=== PATIENT | male | born 1950 | race Caucasian/White ===

== ENCOUNTER 2020-06-17 15:49 | Inpatient (IN) | payer MEDICARE ==
[2020-06-17] MEDS ORDERED: Ondansetron ODT 4 MG TAB PO PRN (18:05)
[2020-06-17] MEDS: Cefdinir 300 MG CAP PO SCH (20:59)
[2020-06-17] MEDS: Famotidine 20 MG TAB PO SCH (20:59)
[2020-06-17] MEDS: Donepezil HCl 10 MG TAB PO SCH (20:59)
[2020-06-17] MEDS: Carvedilol 3.125 MG TAB PO SCH (20:59)
[2020-06-17] MEDS: Enoxaparin Sodium 40 MG/0.4 ML SYRINGE SC SCH (20:59)
[2020-06-17] MEDS ORDERED: Non-Formulary Item 1 EACH (Fluticasone/Salmeterol [Advair Hfa 230/21 Inhaler] 12 GM Hfa.A IH SCH (21:00)
[2020-06-18] MEDS: Acetaminophen 500 MG TAB PO SCH ×4 (01:04→17:52)
[2020-06-18 05:24] LABS: Hemoglobin 9.1 g/dL (14.0-18.0); Mean Corpuscular HGB CONC 31.2 g/dL (32.0-36.0); Mean Corpuscular Hemoglobin 30.1 pg (27.0-31.0); Mean Corpuscular Volume 96.4 fL (78.0-98.0); Red Blood Cell (RBC) Count 3.03 mill/uL (4.70-6.10); White Blood Cell (WBC) Count 8.2 thou/uL (4.8-10.8)
[2020-06-18 05:25] LABS: #Neutrophils 6.1 thou/uL (1.40-6.50); %Basophils 0.6 % (0.0-1.0); %Eosinophils 4.4 % (0.0-10.0); %Lymphocytes 12.7 % (21.0-51.0); %Monocytes 8.7 % (0.0-10.0); %Neutrophils 73.7 % (42.0-75.0); Manual Diff?? NO; Mean Platelet Volume 7.8 fL (7.4-10.4); Platelet Count 465 thou/uL (130-400); RBC Distribution Width 13.3 % (11.5-14.5)
[2020-06-18 05:26] LABS: #Eosinphils 0.4 thou/uL (0.0-0.7); #Monocytes 0.7 thou/uL (0.11-0.59)
[2020-06-18 05:27] LABS: ALT (SGPT) 19 U/L (8-55); AST (SGOT) 25 U/L (5-34); Albumin 3.3 g/dL (3.4-4.8); Alkaline Phosphatase 54 U/L (40-110); Anion Gap 13 mmol/L (10-20); BUN (Urea Nitrogen) 17 mg/dL (8.4-25.7); Calc. Creatinine Clearance 87 mL/min (70-130); Calcium 8.7 mg/dL (7.8-10.44); Carbon Dioxide 28 mmol/L (23-31); Chloride 103 mmol/L (98-107); Estimated GFR-MDRD Greater than 90; Globulin 2.6 g/dL (2.4-3.5); Glucose 102 mg/dL (83-110); Potassium 3.7 mmol/L (3.5-5.1); Protein, Total 5.9 g/dL (5.8-8.1)
[2020-06-18] MEDS: Mometasone/Formoterol 200/5 60 PUFF INH SCH ×2 (05:41→17:59)
[2020-06-18 06:38] LABS: Sodium 140 mmol/L (136-145)
[2020-06-18] MEDS: Ferrous Sulfate 325 MG TAB PO SCH ×2 (08:10→17:06)
[2020-06-18] MEDS: Lactinex Tablet PO SCH (09:07)
[2020-06-18] MEDS: Polyethylene Glycol 3350 17 GM Packet PO SCH (09:07)
[2020-06-18] MEDS: Magnesium Oxide 400 MG TAB PO SCH (09:08)
[2020-06-18] MEDS: Fish Oil 1,000 MG CAP PO SCH (09:08)
[2020-06-18] MEDS: Calcium Carbonate 600 MG + Vit D TAB PO SCH (09:08)
[2020-06-18] MEDS: Ezetimibe 10 MG TAB PO SCH (09:08)
[2020-06-18] MEDS: Famotidine 20 MG TAB PO SCH ×2 (09:08→21:49)
[2020-06-18] MEDS: Cefdinir 300 MG CAP PO SCH ×2 (09:08→21:50)
[2020-06-18] MEDS: Fluticasone Propionate Nasal Spray 16 gm Bottle NASAL SCH (09:08)
[2020-06-18] MEDS: Carvedilol 3.125 MG TAB PO SCH ×2 (09:08→21:49)
--- NOTE | 2020-06-18 10:47 | HP ---
Admission to the [facility]. HISTORY OF PRESENT ILLNESS: The patient is an unfortunate 69-year-old white male with a progressive history of Lewy body dementia and Parkinson disease, who has fallen and suffered a left intertrochanteric proximal femur fracture. He was treated with IM shannon fixation on June 14 at [facility]. He had only complications postoperatively with some mild blood loss with anemia and urinary tract infection. He did not have any complications of his Lewy body dementia, but has remained confused, and his primary caregiver, his , has made all decisions and has been with the patient. He has had no difficulty swallowing with his Parkinson disease. He, however, has remained very stiff and rigid. He has been attempting to cooperate with therapy and has had only occasional delirium. PAST MEDICAL HISTORY: Positive for asthma and COPD as a younger man, only requiring p.r.n. beta agonist at this time. He also has a history of hypertension, which has been well controlled and a history of a previous myocardial infarction with apparent ischemic cardiomyopathy, requiring a defibrillator because of a 35% ejection fraction many years ago. He, however, has had no dyspnea or chest pain or arrhythmias or syncope, but has progressively become weaker, more confused over the last year with a progression of his Lewy body dementia and Parkinson disease. He also has a history of hyperlipidemia and class 1 congestive heart failure. ALLERGIES: HE HAS NO KNOWN ALLERGIES. SOCIAL HISTORY: He is a nonsmoker, nondrinker. He lives with his at home with caregiver's assistance. FAMILY HISTORY: Positive for his father dying of early heart attack. REVIEW OF SYSTEMS: He is unable to give history, but gives all the history. He has only occasional cough. He has had no wheezing. He has denied any chest pain or shortness of breath. He has had no nausea, vomiting, diarrhea, or anorexia. He does have incontinence, but has no previous history of urinary tract infection until this admission. He has been treated with Myrbetriq, but with minimal improvement in his incontinence. He has had no problems with bowel movements or constipation. MEDICATIONS: On admission here were: 1. Tylenol 500 mg every 6 hours as needed for pain. 2. Did take oxycodone immediately postop, but none since then. 3. He is on calcium carbonate with vitamin D3. 4. Cefdinir 300 mg twice daily, urinary tract infection with Escherichia coli. 5. Lovenox 40 mg subcu for 8 weeks postop to prevent DVT per recommendations of orthopedic surgeon. 6. Ferrous sulfate 325 mg twice daily with meals. 7. MiraLAX 17 g daily. 8. Aricept 10 mg nightly. 9. Carvedilol 3.125 mg twice daily. 10. Ezetimibe 10 mg daily. 11. Fluticasone-salmeterol 230-21 two puffs every 12 hours. 12. Fluticasone 50 mcg nasal spray two sprays twice daily. 13. Magnesium oxide 400 mg daily. 14. Niacin 1000 mg nightly. 15. Lovaza 1 g twice daily. 16. He was on Myrbetriq as mentioned above, but wishes to discontinue this. PHYSICAL EXAMINATION: GENERAL: At this time, shows an elderly white male, who is awake, no distress, only occasional cough, but does not respond verbally very much. He has been recently working with therapy, but is very stiff and rigid, is not combatant or agitated. VITAL SIGNS: Show him to have a temperature 96.9, pulse 80, respirations 18, O2 saturation is 95% on room air, and blood pressure 113/56. LUNGS: Show only a few diffuse rhonchi. CARDIAC: Shows regular rhythm. Defibrillator is in place. ABDOMEN: Soft and nontender. No masses or organomegaly. SKIN/EXTREMITIES: Display left hip lateral incision bandaged with no erythema, warmth, or drainage. No tenderness. NEUROLOGIC: There is significant rigidity. Minimal tremor. Cranial nerves appear to be intact, but there are masked faces and bradykinesia. LABORATORY DATA: Laboratory will be done in the a.m. ASSESSMENT: 1. Left intertrochanteric hip fracture, status post IM nailing with pain control with Tylenol. We will see if needs stronger medication with therapy. 2. Significant Lewy body dementia and Parkinson disease, only on Aricept at this time with minimal agitation, attempting to cooperate with therapy. 3. History of ischemic cardiomyopathy with defibrillator, but with no symptoms of systolic heart failure at this time. 4. Hypertension, controlled to goal. 5. Incontinence. No relief with Myrbetriq, will be discontinued. 6. Escherichia coli urinary tract infection, on cefdinir, for 2 more days. 7. Deep venous thrombosis prophylaxis with Lovenox for 8 weeks per recommendations of orthopedic surgeon. The patient is not to be resuscitated and has an advance directive, that was brought in by his power of commercial litigation attorney, his . Job ID: [id number]
[2020-06-18] MEDS: Donepezil HCl 10 MG TAB PO SCH (21:50)
[2020-06-18] MEDS: Enoxaparin Sodium 40 MG/0.4 ML SYRINGE SC SCH (21:50)
[2020-06-19] MEDS: Acetaminophen 500 MG TAB PO SCH ×4 (00:54→17:15)
[2020-06-19] MEDS: Mometasone/Formoterol 200/5 60 PUFF INH SCH ×2 (05:39→17:15)
[2020-06-19] MEDS: Polyethylene Glycol 3350 17 GM Packet PO SCH (08:44)
[2020-06-19] MEDS: Fluticasone Propionate Nasal Spray 16 gm Bottle NASAL SCH (08:44)
[2020-06-19] MEDS: Cefdinir 300 MG CAP PO SCH ×2 (08:45→20:30)
[2020-06-19] MEDS: Lactinex Tablet PO SCH (08:45)
[2020-06-19] MEDS: Fish Oil 1,000 MG CAP PO SCH (08:45)
[2020-06-19] MEDS: Magnesium Oxide 400 MG TAB PO SCH (08:45)
[2020-06-19] MEDS: Carvedilol 3.125 MG TAB PO SCH ×2 (08:45→20:31)
[2020-06-19] MEDS: Calcium Carbonate 600 MG + Vit D TAB PO SCH (08:45)
[2020-06-19] MEDS: Famotidine 20 MG TAB PO SCH ×2 (08:45→20:31)
[2020-06-19] MEDS: Ferrous Sulfate 325 MG TAB PO SCH ×2 (08:45→17:15)
[2020-06-19] MEDS: Ezetimibe 10 MG TAB PO SCH (08:45)
--- NOTE | 2020-06-19 18:53 | PRG ---
DATE OF SERVICE: 06/18/2020 SUBJECTIVE: The patient is more sedated today. Still not improving in his mental status. Has not had therapy today because of the weekend. OBJECTIVE: VITAL SIGNS: Show temperature is 98, pulse 82, respirations 18, O2 sats 100% on room air, and blood pressure 130/68. NEUROLOGIC: Shows significant rigidity, bradykinesia. Deep tendon reflex, 2+ and equal. Cranial nerves intact. LABORATORY DATA: White count is 8200, hematocrit 29, and hemoglobin 9. Sodium 140, potassium 3.7, chloride 103, bicarb 28, BUN 17, creatinine 0.78, total bilirubin 2, and albumin 3. PLAN: 1. Continue PT, OT, and speech evaluation tomorrow. 2. Continue Aricept. 3. Continue cefdinir for urinary tract infection. 4. Monitor oral intake. Job ID: [id number]
--- NOTE | 2020-06-19 19:15 | PRG ---
DATE OF SERVICE: 06/19/2020 SUBJECTIVE: The patient is in bed, sleeping, has eaten partially his supper. He does awaken to questions and does answer fairly appropriately. However, states that he has not cooperated well today and has been much more lethargic and stiff than he has in the past. OBJECTIVE: VITAL SIGNS: Blood pressure is 129/65, temperature is 98, pulse 85, respirations 20, and O2 sats 93% on room air. LUNGS: Clear. CARDIAC: Regular rhythm. ABDOMEN: Soft and nontender. SKIN AND EXTREMITIES: No edema, clubbing, or cyanosis. NEUROLOGIC: Cogwheel rigidity, bradykinesia. ASSESSMENT: 1. Left intertrochanteric hip fracture status post intramedullary nailing with pain control. 2. Significant Lewy body dementia with significant stiffness, bradykinesia, and slowly worsening cognitive deficits. 3. History of ischemic cardiomyopathy with defibrillator with no evidence of angina or congestive heart failure. 4. Hypertension, controlled to goal. 5. Escherichia coli urinary tract infection, on cefdinir for one more day. 6. Deep venous thrombosis prophylaxis with Lovenox for 8 weeks. Job ID: [id number]
[2020-06-19] MEDS: Donepezil HCl 10 MG TAB PO SCH (20:30)
[2020-06-19] MEDS: Enoxaparin Sodium 40 MG/0.4 ML SYRINGE SC SCH (20:31)
[2020-06-20] MEDS: Acetaminophen 500 MG TAB PO SCH ×5 (00:22→23:59)
[2020-06-20] MEDS: Mometasone/Formoterol 200/5 60 PUFF INH SCH ×2 (05:37→18:21)
[2020-06-20] MEDS: Fluticasone Propionate Nasal Spray 16 gm Bottle NASAL SCH (09:15)
[2020-06-20] MEDS: Polyethylene Glycol 3350 17 GM Packet PO SCH (09:16)
[2020-06-20] MEDS: Ezetimibe 10 MG TAB PO SCH (09:17)
[2020-06-20] MEDS: Famotidine 20 MG TAB PO SCH ×2 (09:17→21:11)
[2020-06-20] MEDS: Magnesium Oxide 400 MG TAB PO SCH (09:17)
[2020-06-20] MEDS: Fish Oil 1,000 MG CAP PO SCH (09:17)
[2020-06-20] MEDS: Calcium Carbonate 600 MG + Vit D TAB PO SCH (09:17)
[2020-06-20] MEDS: Lactinex Tablet PO SCH (09:17)
[2020-06-20] MEDS: Carvedilol 3.125 MG TAB PO SCH ×2 (09:17→21:11)
[2020-06-20] MEDS: Cefdinir 300 MG CAP PO SCH ×2 (09:17→21:11)
[2020-06-20] MEDS: Ferrous Sulfate 325 MG TAB PO SCH ×2 (09:17→17:26)
[2020-06-20] MEDS ORDERED: Ondansetron ODT 4 MG TAB SL PRN (11:45)
[2020-06-20] MEDS: Enoxaparin Sodium 40 MG/0.4 ML SYRINGE SC SCH (21:10)
[2020-06-20] MEDS: Acetaminophen 325 MG TAB PO PRN (21:11)
[2020-06-20] MEDS: Donepezil HCl 10 MG TAB PO SCH (21:11)
[2020-06-21] MEDS: Acetaminophen 500 MG TAB PO SCH ×3 (06:05→18:28)
[2020-06-21] MEDS: Mometasone/Formoterol 200/5 60 PUFF INH SCH ×2 (06:06→18:28)
--- NOTE | 2020-06-21 08:17 | PRG ---
DATE OF SERVICE: 06/20/2020 SUBJECTIVE: The patient is sitting in bed, has eaten slightly, but did eat better today. Did work with therapy today and having tolerable pain, but did have some agitation this morning; however, is in the room and did calm him down and he did work with therapy. OBJECTIVE: VITAL SIGNS: Shows his blood pressure is 115/61, temperature is 98, pulse 70, respirations 20, O2 saturations 95% on room air. LUNGS: Clear. CARDIAC: Showed regular rhythm. ABDOMEN: Soft and nontender. NEUROLOGICAL: Shows significant bradykinesia and cogwheel rigidity and some minimal tremor. The patient also is intermittently lethargic, but does respond appropriately at times. ASSESSMENT: 1. Lewy body dementia, slowly progressive. 2. Fracture of the left hip status, intramedullary nailing with pain control on Tylenol. 3. History of ischemic cardiomyopathy, a defibrillator. No evidence of angina. 4. Hypertension, controlled to go. 5. Escherichia coli urinary tract infection with finished treatment with cefdinir. 6. Deep vein thrombosis prophylaxis, on Lovenox. PLAN: 1. Continue PT, OT. 2. Continue to monitor for behavioral disturbances. 3. Continue to monitor for DVT prophylaxis. 4. Continue to monitor for recurrent signs of ischemia. 5. Continue to monitor vital signs closely. Job ID: [id number]
[2020-06-21] MEDS: Ferrous Sulfate 325 MG TAB PO SCH ×2 (08:25→16:57)
[2020-06-21] MEDS: Magnesium Oxide 400 MG TAB PO SCH (08:25)
[2020-06-21] MEDS: Fish Oil 1,000 MG CAP PO SCH (08:25)
[2020-06-21] MEDS: Carvedilol 3.125 MG TAB PO SCH ×2 (08:26→21:11)
[2020-06-21] MEDS: Famotidine 20 MG TAB PO SCH ×2 (08:26→21:11)
[2020-06-21] MEDS: Polyethylene Glycol 3350 17 GM Packet PO SCH (08:26)
[2020-06-21] MEDS: Ezetimibe 10 MG TAB PO SCH (08:26)
[2020-06-21] MEDS: Lactinex Tablet PO SCH (08:27)
[2020-06-21] MEDS: Fluticasone Propionate Nasal Spray 16 gm Bottle NASAL SCH (08:27)
[2020-06-21] MEDS: Calcium Carbonate 600 MG + Vit D TAB PO SCH (08:27)
[2020-06-21] MEDS: Enoxaparin Sodium 40 MG/0.4 ML SYRINGE SC SCH (21:10)
[2020-06-21] MEDS: Donepezil HCl 10 MG TAB PO SCH (21:11)
[2020-06-22] MEDS: Acetaminophen 500 MG TAB PO SCH ×4 (00:12→17:34)
[2020-06-22] MEDS: Mometasone/Formoterol 200/5 60 PUFF INH SCH ×2 (05:40→17:35)
[2020-06-22] MEDS: Famotidine 20 MG TAB PO SCH ×2 (08:10→20:47)
[2020-06-22] MEDS: Carvedilol 3.125 MG TAB PO SCH ×2 (08:10→20:47)
[2020-06-22] MEDS: Ezetimibe 10 MG TAB PO SCH (08:10)
[2020-06-22] MEDS: Fish Oil 1,000 MG CAP PO SCH (08:10)
[2020-06-22] MEDS: Magnesium Oxide 400 MG TAB PO SCH (08:10)
[2020-06-22] MEDS: Ferrous Sulfate 325 MG TAB PO SCH ×2 (08:10→17:34)
[2020-06-22] MEDS: Lactinex Tablet PO SCH (08:10)
[2020-06-22] MEDS: Calcium Carbonate 600 MG + Vit D TAB PO SCH (08:10)
[2020-06-22] MEDS: Fluticasone Propionate Nasal Spray 16 gm Bottle NASAL SCH (08:11)
[2020-06-22] MEDS: Polyethylene Glycol 3350 17 GM Packet PO SCH (08:11)
[2020-06-22] MEDS: HYDROcodone/Acetaminophen 5/325 mg Tablet PO PRN ×2 (09:40→20:55)
[2020-06-22] MEDS: Donepezil HCl 10 MG TAB PO SCH (20:47)
[2020-06-22] MEDS: Enoxaparin Sodium 40 MG/0.4 ML SYRINGE SC SCH (20:47)
[2020-06-23] MEDS: Acetaminophen 500 MG TAB PO SCH ×4 (00:31→17:52)
[2020-06-23] MEDS: Mometasone/Formoterol 200/5 60 PUFF INH SCH ×2 (05:48→17:52)
[2020-06-23] MEDS: Lactinex Tablet PO SCH (08:33)
[2020-06-23] MEDS: Magnesium Oxide 400 MG TAB PO SCH (08:34)
[2020-06-23] MEDS: Calcium Carbonate 600 MG + Vit D TAB PO SCH (08:34)
[2020-06-23] MEDS: Polyethylene Glycol 3350 17 GM Packet PO SCH (08:34)
[2020-06-23] MEDS: Famotidine 20 MG TAB PO SCH ×2 (08:34→20:21)
[2020-06-23] MEDS: Ezetimibe 10 MG TAB PO SCH (08:34)
[2020-06-23] MEDS: Ferrous Sulfate 325 MG TAB PO SCH ×2 (08:34→17:52)
[2020-06-23] MEDS: Fish Oil 1,000 MG CAP PO SCH (08:34)
[2020-06-23] MEDS: Fluticasone Propionate Nasal Spray 16 gm Bottle NASAL SCH (08:35)
[2020-06-23] MEDS: Carvedilol 3.125 MG TAB PO SCH ×2 (08:35→20:21)
[2020-06-23] MEDS: Acetaminophen 325 MG TAB PO PRN (10:13)
--- NOTE | 2020-06-23 10:17 | PRG ---
DATE OF SERVICE: 06/23/2020 SUBJECTIVE: The patient is sitting in the bed, visiting with his , answers questions occasionally and appropriately. states he had a much better day today where he is working with therapy, has been eating well and she felt that there has been a marked improvement. OBJECTIVE: VITAL SIGNS: Shows temperature 97, pulse 79, respirations 20, O2 sats 97% on room air, blood pressure 119/56. LUNGS: Clear. CARDIAC: Regular rhythm. ABDOMEN: Soft and nontender. NEUROLOGIC: Shows significant bradykinesia and cogwheel rigidity. show healing intramedullary nail . ASSESSMENT: 1. Lewy body dementia, appears to be slightly improved today, but has generally been slowly progressive. 2. Fracture of left hip, status post intramedullary nailing, healing well. 3. History of ischemic cardiomyopathy status post defibrillator. Asymptomatic. 4. Hypertension, controlled to goal. 5. Escherichia coli tract infection, finished treatment with cefdinir. 6. Deep venous thrombosis prophylaxis and stress ulcer prophylaxis. PLAN: 1. Continue PT, OT. 2. Continue DVT and stress ulcer prophylaxis. 3. Continue to monitor for signs of ischemia. 4. Continue to monitor for signs of behavior disturbance. Job ID: [id number]
--- NOTE | 2020-06-23 10:20 | PRG ---
DATE OF SERVICE: 06/22/2020 SUBJECTIVE: The patient feels weak and tired, working with therapy today and resting in the bed. The patient's is not in the room. OBJECTIVE: VITAL SIGNS: Temperature 96.6, pulse 76, respirations 20, O2 sats 97% on room air, blood pressure 118/68. LUNGS: Clear. CARDIAC: Regular rhythm. ABDOMEN: Soft and nontender. EXTREMITIES: Healing left lateral hip incision. NEUROLOGICAL: Significant bradykinesia and cogwheel rigidity. ASSESSMENT: 1. Lewy body dementia and Parkinson disease, slowly progressing, but does appear to be improving with therapy today after exacerbation after surgery. 2. Left hip fracture, status post intramedullary nailing, healing well with probable pain, on Tylenol. 3. Ischemic cardiomyopathy, asymptomatic, status post defibrillator. 4. E coli urinary tract infection, resolved. 5. Hypertension, controlled to goal. PLAN: 1. Continue PT, OT. 2. Continue to monitor for behavioral disturbances. 3. Continue to monitor for ischemia. 4. Continue DVT, stress ulcer prophylaxis. 5. Continue to restrict pain medications until return from my vacation on July 09. Job ID: [id number]
[2020-06-23] MEDS: Enoxaparin Sodium 40 MG/0.4 ML SYRINGE SC SCH (20:20)
[2020-06-23] MEDS: Donepezil HCl 10 MG TAB PO SCH (20:21)
[2020-06-24] MEDS: Acetaminophen 500 MG TAB PO SCH ×4 (01:53→17:38)
[2020-06-24] MEDS: Mometasone/Formoterol 200/5 60 PUFF INH SCH ×2 (05:56→17:38)
[2020-06-24] MEDS: Carvedilol 3.125 MG TAB PO SCH ×2 (08:21→20:44)
[2020-06-24] MEDS: Calcium Carbonate 600 MG + Vit D TAB PO SCH (08:21)
[2020-06-24] MEDS: Lactinex Tablet PO SCH (08:21)
[2020-06-24] MEDS: Ferrous Sulfate 325 MG TAB PO SCH ×2 (08:21→17:37)
[2020-06-24] MEDS: Ezetimibe 10 MG TAB PO SCH (08:21)
[2020-06-24] MEDS: Fish Oil 1,000 MG CAP PO SCH (08:21)
[2020-06-24] MEDS: Famotidine 20 MG TAB PO SCH ×2 (08:21→20:44)
[2020-06-24] MEDS: Polyethylene Glycol 3350 17 GM Packet PO SCH (08:21)
[2020-06-24] MEDS: Magnesium Oxide 400 MG TAB PO SCH (08:21)
[2020-06-24] MEDS: Fluticasone Propionate Nasal Spray 16 gm Bottle NASAL SCH (08:22)
[2020-06-24] MEDS: Enoxaparin Sodium 40 MG/0.4 ML SYRINGE SC SCH (20:44)
[2020-06-24] MEDS: Donepezil HCl 10 MG TAB PO SCH (20:44)
[2020-06-25] MEDS: Acetaminophen 500 MG TAB PO SCH ×4 (00:48→17:47)
[2020-06-25] MEDS: Mometasone/Formoterol 200/5 60 PUFF INH SCH ×2 (05:35→17:47)
[2020-06-25] MEDS: Ferrous Sulfate 325 MG TAB PO SCH ×2 (08:24→17:47)
[2020-06-25] MEDS: Polyethylene Glycol 3350 17 GM Packet PO SCH (08:24)
[2020-06-25] MEDS: Calcium Carbonate 600 MG + Vit D TAB PO SCH (08:24)
[2020-06-25] MEDS: Magnesium Oxide 400 MG TAB PO SCH (08:25)
[2020-06-25] MEDS: Fluticasone Propionate Nasal Spray 16 gm Bottle NASAL SCH (08:25)
[2020-06-25] MEDS: Carvedilol 3.125 MG TAB PO SCH ×2 (08:25→20:54)
[2020-06-25] MEDS: Lactinex Tablet PO SCH (08:25)
[2020-06-25] MEDS: Famotidine 20 MG TAB PO SCH ×2 (08:25→20:54)
[2020-06-25] MEDS: Ezetimibe 10 MG TAB PO SCH (08:25)
[2020-06-25] MEDS: Fish Oil 1,000 MG CAP PO SCH (08:25)
[2020-06-25] MEDS: Acetaminophen 325 MG TAB PO PRN (09:06)
[2020-06-25] MEDS: Donepezil HCl 10 MG TAB PO SCH (20:54)
[2020-06-25] MEDS: Enoxaparin Sodium 40 MG/0.4 ML SYRINGE SC SCH (20:54)
[2020-06-26] MEDS: Acetaminophen 500 MG TAB PO SCH ×4 (00:17→17:50)
[2020-06-26] MEDS: Mometasone/Formoterol 200/5 60 PUFF INH SCH ×2 (06:04→17:50)
[2020-06-26] MEDS: Polyethylene Glycol 3350 17 GM Packet PO SCH (08:06)
[2020-06-26] MEDS: Calcium Carbonate 600 MG + Vit D TAB PO SCH (08:07)
[2020-06-26] MEDS: Fluticasone Propionate Nasal Spray 16 gm Bottle NASAL SCH (08:07)
[2020-06-26] MEDS: Ezetimibe 10 MG TAB PO SCH (08:07)
[2020-06-26] MEDS: Ferrous Sulfate 325 MG TAB PO SCH ×2 (08:07→17:50)
[2020-06-26] MEDS: Magnesium Oxide 400 MG TAB PO SCH (08:07)
[2020-06-26] MEDS: Fish Oil 1,000 MG CAP PO SCH (08:07)
[2020-06-26] MEDS: Lactinex Tablet PO SCH (08:08)
[2020-06-26] MEDS: Carvedilol 3.125 MG TAB PO SCH ×2 (08:08→21:19)
[2020-06-26] MEDS: Famotidine 20 MG TAB PO SCH ×2 (08:08→21:19)
--- NOTE | 2020-06-26 20:52 | PRG ---
DATE OF SERVICE: 06/26/2020 SUBJECTIVE: Mr. Jones is a pleasant 69-year-old white male. Unfortunately, he fell and had a left intertrochanteric proximal femur fracture. He was taken to [facility] on June 14, had an intramedullary shannon fixation. Postoperatively, he had some mild blood loss with anemia and urinary tract infection. He was placed on cefdinir and seem to do well. He has comorbidities of Lewy body dementia, Parkinson's disease, asthma, COPD, prior [place] with apparent ischemic cardiomyopathy requiring a defibrillator because of the 35% ejection fraction, hyperlipidemia, class 1 congestive heart failure, incontinence, and generalized weakness. He is seen late this evening and is easily arousable. He seems to be more cognitive than he has been on his admission. OBJECTIVE: VITAL SIGNS: Today reveal blood pressure 117/62, pulse 80 to 81, respirations 20, O2 saturation 97% to 98% on room air, T-max 97.8. GENERAL: This is a well-developed, well-nourished pleasant white male, presently resting. HEENT: Normocephalic and nontraumatic cranium. Pupils equally round and reactive. Extraocular movements intact. Nose and throat are slightly dry, but clear. NECK: Supple without masses, nodes, or bruits. CHEST: Clear to auscultation. No rales, no rhonchi, no wheezes. No cough is noted. HEART: Reveals a regular rate and rhythm without murmurs, gallops, or rubs. ABDOMEN: Soft, nontender without organomegaly. Normal bowel sounds in all 4 quadrants. GENITOURINARY: Deferred. EXTREMITIES: Reveal no clubbing, cyanosis, or edema. Left lateral hip incision from intramedullary nailing is healing well without any redness, induration, or drainage. NEUROLOGIC: The patient has Parkinson's with cogwheel rigidity and some significant bradykinesias. ASSESSMENT: 1. Slightly more cognitive than on admission. 2. Lewy body dementia. 3. Parkinson's disease. 4. Left hip fracture, status post IM nailing. 5. Ischemic cardiomyopathy with ejection fraction 35% and status post defibrillator. 6. Escherichia coli urinary tract infection, resolved. 7. Hypertension. 8. Incontinence, unresponsive to Myrbetriq. 9. Deep venous thrombosis prophylaxis with Lovenox for 8 weeks per recommendation of orthopedic surgeon. 10. DNR. PLAN: 1. Continue supportive care. 2. Continue to monitor the patient's blood pressure closely and adjust medications as needed. 3. Patient has finished his cefdinir for his E. coli infection. 4. DVT prophylaxis with Lovenox for 8 weeks per Orthopedic Surgery. 5. Patient is DNR. 6. Continue physical therapy and occupational therapy. Job ID: [id number]
[2020-06-26] MEDS: Donepezil HCl 10 MG TAB PO SCH (21:19)
[2020-06-26] MEDS: Enoxaparin Sodium 40 MG/0.4 ML SYRINGE SC SCH (21:19)
[2020-06-27] MEDS: Acetaminophen 500 MG TAB PO SCH ×4 (00:47→17:20)
[2020-06-27] MEDS: Mometasone/Formoterol 200/5 60 PUFF INH SCH ×2 (05:26→17:20)
[2020-06-27] MEDS: Ferrous Sulfate 325 MG TAB PO SCH ×2 (08:08→17:20)
[2020-06-27] MEDS: Fish Oil 1,000 MG CAP PO SCH (08:09)
[2020-06-27] MEDS: Famotidine 20 MG TAB PO SCH ×2 (08:09→21:38)
[2020-06-27] MEDS: Magnesium Oxide 400 MG TAB PO SCH (08:09)
[2020-06-27] MEDS: Carvedilol 3.125 MG TAB PO SCH ×2 (08:09→21:38)
[2020-06-27] MEDS: Ezetimibe 10 MG TAB PO SCH (08:09)
[2020-06-27] MEDS: Lactinex Tablet PO SCH (08:09)
[2020-06-27] MEDS: Polyethylene Glycol 3350 17 GM Packet PO SCH (08:10)
[2020-06-27] MEDS: Fluticasone Propionate Nasal Spray 16 gm Bottle NASAL SCH (08:10)
[2020-06-27] MEDS: Calcium Carbonate 600 MG + Vit D TAB PO SCH (08:11)
--- NOTE | 2020-06-27 10:17 | PRG ---
DATE OF SERVICE: 06/27/2020 SUBJECTIVE: Mr. Jones is a well-developed, thin 69-year-old pleasant white male. Unfortunately, he fell and had a left intertrochanteric proximal femur fracture. He was taken to [facility] and on June 14 had an intramedullary shannon fixation done. Postoperatively, he was anemic, found to have urinary tract infection, was started on cefdinir. He is also noted to have comorbidities of Lewy body dementia, Parkinson disease, asthma, COPD, prior [place] with apparent ischemic cardiomyopathy with an ejection fraction of 35%, requiring a defibrillator, hyperlipidemia, class I congestive heart failure, incontinence, and generalized weakness. He eventually was stabilized and transferred to [facility] for PT and OT to increase his strength and stamina. He also has some cognitive loss and since he has been on therapy, that has gradually gotten better. OBJECTIVE: VITAL SIGNS: Today reveal blood pressure this morning was 109/66, pulse 81 to 97, respirations 20, O2 saturation 97% on room air, T-max 97.5. GENERAL: This is a well-developed, thin, very soft-spoken white male, in no apparent distress at this time. He is actually found walking with physical therapy in the hallway. His Parkinson limits him, but once he starts going, he does much better. After therapy yesterday, he states that he is gradually getting a little bit better every day. He still is a 2-person assist, but making strides towards being a one person assist. HEENT: Normocephalic and nontraumatic cranium. Pupils equally round and reactive. Extraocular movement is intact. Nose and throat are clear. NECK: Supple without masses, nodes, or bruits. CHEST: Clear to auscultation. No rales, rhonchi, wheezes, or cough is noted. HEART: Regular rate and rhythm without murmurs, gallops, rubs. ABDOMEN: Soft, nontender without organomegaly. Normal bowel sounds in all 4 quadrants. : Deferred. EXTREMITIES: No clubbing, cyanosis, or edema. Left lateral hip incision from the intramedullary nailing is healing well. The patient has significant rigidity but is slowly improving with his physical therapy. ASSESSMENT: 1. Status post left hip fracture, IM nailing. 2. Ischemic cardiomyopathy with ejection fraction 35%, post defibrillator. 3. Escherichia coli urinary tract infection, resolved. 4. Hypertension. 5. Incontinence, unresponsive to Myrbetriq. 6. Lewy body dementia. 7. Parkinson disease. 8. Decreased cognition on admission, which is slowly improving. 9. Incontinence, unresponsive to Myrbetriq. 10. DVT prophylaxis with Lovenox for 8 weeks per orthopedic surgeon recommendation. 11. DNR. PLAN: 1. Continue to follow the patient's blood pressure closely and adjust medications as needed. 2. Continue to monitor the patient's labs at least q. week. 3. Continue present medications. 4. Continue supportive care. 5. DVT prophylaxis with Lovenox. 6. Continue physical therapy and occupational therapy. Job ID: [id number]
[2020-06-27] MEDS: Donepezil HCl 10 MG TAB PO SCH (21:38)
[2020-06-27] MEDS: Enoxaparin Sodium 40 MG/0.4 ML SYRINGE SC SCH (21:38)
[2020-06-28] MEDS: Acetaminophen 500 MG TAB PO SCH ×4 (01:37→16:57)
[2020-06-28] MEDS: Mometasone/Formoterol 200/5 60 PUFF INH SCH ×2 (06:01→16:57)
[2020-06-28] MEDS: Lactinex Tablet PO SCH (09:00)
[2020-06-28] MEDS: Fish Oil 1,000 MG CAP PO SCH (09:00)
[2020-06-28] MEDS: Magnesium Oxide 400 MG TAB PO SCH (09:00)
[2020-06-28] MEDS: Polyethylene Glycol 3350 17 GM Packet PO SCH (09:00)
[2020-06-28] MEDS: Famotidine 20 MG TAB PO SCH ×2 (09:00→20:46)
[2020-06-28] MEDS: Calcium Carbonate 600 MG + Vit D TAB PO SCH (09:00)
[2020-06-28] MEDS: Ferrous Sulfate 325 MG TAB PO SCH ×2 (09:00→16:57)
[2020-06-28] MEDS: Ezetimibe 10 MG TAB PO SCH (09:00)
[2020-06-28] MEDS: Fluticasone Propionate Nasal Spray 16 gm Bottle NASAL SCH (09:01)
[2020-06-28] MEDS: Carvedilol 3.125 MG TAB PO SCH ×2 (09:01→20:47)
[2020-06-28] MEDS: Acetaminophen 325 MG TAB PO PRN (10:29)
--- NOTE | 2020-06-28 12:05 | PRG ---
DATE OF SERVICE: 06/28/2020 SUBJECTIVE: Mr. Jones is a 69-year-old white male, who was at home when he fell. He had a resultant left intertrochanteric proximal femur fracture. He was taken to [facility] on June 14, had an intramedullary shannon fixation done. Postoperatively, he is anemic, he was found to have a urinary tract infection and he had to be started on cefdinir. He also was noted to have Lewy body dementia, Parkinson disease, asthma, COPD, prior [place] with apparent ischemic cardiomyopathy with ejection fraction of 35%, requiring defibrillator, hyperlipidemia, class I congestive heart failure, incontinence, and generalized weakness. Eventually, he was stabilized and has been transferred to [facility] under the care of Dr. Kirill Ornelas. He is here for PT and OT to increase his strength and stamina. Since the surgery, he apparently had some cognitive loss and states he has been here and does gradually getting better with his therapy. OBJECTIVE: VITAL SIGNS: This morning reveal blood pressure of 116/67, pulse 80, respirations 18, O2 saturations 99% on room air, T-max 97.2. GENERAL: This is a well-developed, well-nourished, thin white male, in no apparent distress at this time. HEENT: Reveals normocephalic and nontraumatic cranium. Pupils equally round and reactive. Extraocular movements are intact. Nose and throat are slightly dry. NECK: Supple without masses, nodes, or bruits. CHEST: Clear to auscultation. No rales, rhonchi, wheezes, or cough is heard. HEART: Reveals a regular rate and rhythm without murmurs, gallops, or rubs. ABDOMEN: Soft and nontender without organomegaly. Normal bowel sounds in all 4 quadrants is noted. No rebound or guarding is noted. : Deferred. EXTREMITIES: Reveal no clubbing, cyanosis, or edema. Left hip incision is healing well. The patient has continued rigidity secondary to his Parkinson's. His cognition is gradually improving as reported by therapy. ASSESSMENT: 1. Status post left hip fracture with status post intramedullary nailing. 2. Ischemic cardiomyopathy with ejection fraction 35%, post defibrillator placement. 3. Escherichia coli urinary tract infection, resolved. 4. Hypertension. 5. Lewy body dementia. 6. Parkinson disease. 7. Decreased cognition on admission, which is slowly improving. 8. Incontinence, unresponsive to Myrbetriq. 9. DVT prophylaxis with Lovenox for 8 weeks per orthopedic surgeon recommendation. 10. DNR. PLAN: 1. Continue to monitor the patient's blood pressure closely. 2. Continue to monitor the patient's labs q.week. 3. Continue present medications. 4. Continue support. 5. Stress ulcer prophylaxis. 6. DVT prophylaxis with Lovenox. 7. Decubitus precautions. 8. Continue physical therapy and occupational therapy. Job ID: [id number]
[2020-06-28] MEDS: Enoxaparin Sodium 40 MG/0.4 ML SYRINGE SC SCH (20:46)
[2020-06-28] MEDS: Donepezil HCl 10 MG TAB PO SCH (20:47)
[2020-06-29] MEDS: Acetaminophen 500 MG TAB PO SCH ×4 (01:51→17:44)
[2020-06-29] MEDS: Mometasone/Formoterol 200/5 60 PUFF INH SCH ×2 (05:32→17:44)
[2020-06-29] MEDS: Fish Oil 1,000 MG CAP PO SCH (08:18)
[2020-06-29] MEDS: Calcium Carbonate 600 MG + Vit D TAB PO SCH (08:18)
[2020-06-29] MEDS: Ferrous Sulfate 325 MG TAB PO SCH ×2 (08:18→17:44)
[2020-06-29] MEDS: Polyethylene Glycol 3350 17 GM Packet PO SCH (08:18)
[2020-06-29] MEDS: Ezetimibe 10 MG TAB PO SCH (08:18)
[2020-06-29] MEDS: Fluticasone Propionate Nasal Spray 16 gm Bottle NASAL SCH (08:19)
[2020-06-29] MEDS: Magnesium Oxide 400 MG TAB PO SCH (08:19)
[2020-06-29] MEDS: Famotidine 20 MG TAB PO SCH ×2 (08:19→20:55)
[2020-06-29] MEDS: Carvedilol 3.125 MG TAB PO SCH ×2 (08:19→20:56)
[2020-06-29] MEDS: Lactinex Tablet PO SCH (08:19)
[2020-06-29] MEDS: HYDROcodone/Acetaminophen 5/325 mg Tablet PO PRN (12:18)
--- NOTE | 2020-06-29 18:53 | PRG ---
DATE OF SERVICE: 06/29/2020 SUBJECTIVE: Mr. Jones is a pleasant, soft-spoken 69-year-old white male. He fell at home unfortunately and had a resultant left intertrochanteric proximal femur fracture. He is taken to [facility], had an intramedullary shannon fixation done. Postoperatively, he is anemic and found to have urinary tract infection and was started on cefdinir. He has comorbidities of Parkinson disease with Lewy body dementia, asthma, COPD, prior [place] with apparent ischemic cardiomyopathy with ejection fraction 35% requiring defibrillator, hyperlipidemia, class I congestive heart failure, generalized weakness. He was stabilized and transferred to [facility] to Dr. Ornelas for PT and OT to increase his strength and stamina. The patient's is in the room and answering most of his questions today. She states she is doing well and he is doing fairly well, but she is not sure she can take him home and care for him. She states she is going to need quite a bit to help. OBJECTIVE: VITAL SIGNS: Today reveal blood pressure 113/57, pulse 80, respirations 18 to 20, O2 saturation 98% to 99% on room air, T-max 97.9. GENERAL: He is a well-developed, well-nourished, thin white male, in no apparent distress at this time. HEENT: Reveals normocephalic and nontraumatic cranium. Pupils are equal, round, and reactive. Extraocular movements are intact. Nose and throat are clear. NECK: Supple without masses, nodes, or bruits. CHEST: Clear to auscultation. No rales, rhonchi, wheezes are heard. HEART: Reveals a regular rate and rhythm without murmurs, gallops, or rubs. ABDOMEN: Soft, nontender without organomegaly. Normal bowel sounds are noted in all 4 quadrants. No rebound or guarding is noted. : Deferred. EXTREMITIES: Reveal no clubbing, cyanosis, or edema. Left hip incisions are healing well, not red, not oozing. The patient's surgeon wants to take them out himself and will have an appointment tomorrow to do that. NEUROLOGIC: The patient continues with some rigidity secondary to his Parkinson's. His cognition is slightly improved according to his . ASSESSMENT: 1. Status post left hip fracture with status post intramedullary nailing. 2. Ischemic cardiomyopathy with ejection fraction 35%, status post defibrillator placement. 3. Hypertension. 4. Lewy body dementia. 5. Parkinson disease. 6. Escherichia coli urinary tract infection, which resolved. 7. Decreased cognition on admission, now is slowly improving. 8. Incontinence, unresponsive to Myrbetriq. 9. Deep vein thrombosis prophylaxis with Lovenox for 8 weeks per orthopedic surgeon recommendation. 10. DNR. PLAN: 1. The patient is supposed to see his orthopedic surgeon tomorrow. 2. Continue to monitor the patient's labs every week. 3. Continue present medications. 4. Continue supportive care. 5. Stress ulcer prophylaxis. 6. DVT prophylaxis with Lovenox. 7. Decubitus precautions. 8. Continue PT and OT. Job ID: [id number] [facility]
[2020-06-29] MEDS: Donepezil HCl 10 MG TAB PO SCH (20:55)
[2020-06-29] MEDS: Enoxaparin Sodium 40 MG/0.4 ML SYRINGE SC SCH (20:56)
[2020-06-29] MEDS: Acetaminophen 325 MG TAB PO PRN (20:56)
[2020-06-30] MEDS: Acetaminophen 500 MG TAB PO SCH ×4 (00:24→17:13)
[2020-06-30] MEDS: Mometasone/Formoterol 200/5 60 PUFF INH SCH ×2 (05:34→17:14)
[2020-06-30] MEDS: Polyethylene Glycol 3350 17 GM Packet PO SCH (08:05)
[2020-06-30] MEDS: Ezetimibe 10 MG TAB PO SCH (08:06)
[2020-06-30] MEDS: Magnesium Oxide 400 MG TAB PO SCH (08:06)
[2020-06-30] MEDS: Ferrous Sulfate 325 MG TAB PO SCH ×2 (08:06→17:13)
[2020-06-30] MEDS: Lactinex Tablet PO SCH (08:06)
[2020-06-30] MEDS: Calcium Carbonate 600 MG + Vit D TAB PO SCH (08:06)
[2020-06-30] MEDS: Carvedilol 3.125 MG TAB PO SCH ×2 (08:06→21:15)
[2020-06-30] MEDS: Famotidine 20 MG TAB PO SCH ×2 (08:06→21:16)
[2020-06-30] MEDS: Fluticasone Propionate Nasal Spray 16 gm Bottle NASAL SCH (08:07)
[2020-06-30] MEDS: Fish Oil 1,000 MG CAP PO SCH (08:10)
--- NOTE | 2020-06-30 15:00 | PRG ---
DATE OF SERVICE: 06/30/2020 SUBJECTIVE: Mr. Jones is a well-developed, well-nourished 69-year-old very unfortunate man. He fell at home and had a resultant left intertrochanteric proximal femur fracture. He was taken to [facility] to the surgical suite and he had an intramedullary shannon fixation done. Postoperatively, he was anemic and found to have a urinary tract infection. He also has comorbidities of COPD, coronary artery disease with prior [place], ischemic cardiomyopathy with ejection fraction 35%, class I congestive heart failure, hyperlipidemia, generalized weakness, Parkinson disease, and Lewy body dementia. He eventually was stabilized and then transferred to [facility] to Dr. Ornelas for physical therapy and occupational therapy to increase his strength and stamina. His cognitive deficits have also been addressed while he is here and he is gradually improving. The patient has an appointment today with Dr. Lopes early this afternoon, is leaving at this time. PHYSICAL EXAMINATION: VITAL SIGNS: Today reveal blood pressure this morning 106/66, pulse 82, respirations 18 to 20, O2 saturations 97% to 98% on room air, T-max 98.2. GENERAL: This is a well-developed, well-nourished, thin, very quite spoken white male, in no apparent distress. CHEST: Clear without rales, rhonchi, or wheezes. HEART: Reveals regular rate and rhythm. ABDOMEN: Soft, nontender without organomegaly. : Deferred. EXTREMITIES: Left hip incisions are to be inspected by Dr. Lopes and katia most likely to be removed today. His physical therapy is actually going very well. On Friday, he was able to walk 21 feet, then 34 feet, then 45 feet. On , he was only able to walk 27 feet. This morning, he is able to walk 50 feet, then 28 feet, then 70 feet. Speech therapy also states he is doing better and she wants to liberalize his diet a little bit. He has also seemed to be eating better. Yesterday, he ate 100% of breakfast, 50% of lunch, 70% of supper, and this morning, he ate 75% of breakfast and 50% of lunch. ASSESSMENT: 1. Status post fall with resultant left intertrochanteric proximal femur fracture with intramedullary nailing by Dr. Lopes. 2. Ischemic cardiomyopathy with ejection fraction 35%, status post defibrillator placement. 3. Hypertension. 4. Parkinson disease. 5. Lewy body dementia. 6. Decreased cognition on admission, now improving. 7. Incontinent, unresponsive to Myrbetriq. 8. History of urinary tract infections, which is resolved. 9. Deep venous thrombosis prophylaxis with Lovenox for 8 weeks per orthopedic surgeon's recommendation. 10. DNR. PLAN: 1. The patient is going to see Dr. Lopes this afternoon. 2. We will continue the patient's labs once a week. 3. Continue present medications. 4. Continue supportive care. 5. Stress ulcer prophylaxis. 6. DVT prophylaxis. 7. Continue decubitus precautions. 8. Continue physical therapy and occupational therapy. 9. We will await any further instructions from Dr. Lopes, his orthopedist. Job ID: [id number] MTDD
[2020-06-30] MEDS: Enoxaparin Sodium 40 MG/0.4 ML SYRINGE SC SCH (21:15)
[2020-06-30] MEDS: Donepezil HCl 10 MG TAB PO SCH (21:15)
[2020-07-01] MEDS: Acetaminophen 500 MG TAB PO SCH ×4 (01:15→18:23)
[2020-07-01] MEDS: Mometasone/Formoterol 200/5 60 PUFF INH SCH ×2 (05:28→18:23)
[2020-07-01] MEDS: Calcium Carbonate 600 MG + Vit D TAB PO SCH (08:24)
[2020-07-01] MEDS: Carvedilol 3.125 MG TAB PO SCH ×2 (08:25→21:25)
[2020-07-01] MEDS: Fish Oil 1,000 MG CAP PO SCH (08:25)
[2020-07-01] MEDS: Ferrous Sulfate 325 MG TAB PO SCH ×2 (08:25→18:20)
[2020-07-01] MEDS: Famotidine 20 MG TAB PO SCH ×2 (08:25→21:25)
[2020-07-01] MEDS: Ezetimibe 10 MG TAB PO SCH (08:25)
[2020-07-01] MEDS: Lactinex Tablet PO SCH (08:25)
[2020-07-01] MEDS: Magnesium Oxide 400 MG TAB PO SCH (08:25)
[2020-07-01] MEDS: Polyethylene Glycol 3350 17 GM Packet PO SCH (08:26)
[2020-07-01] MEDS: Fluticasone Propionate Nasal Spray 16 gm Bottle NASAL SCH (08:31)
--- NOTE | 2020-07-01 16:10 | PRG ---
DATE OF SERVICE: 07/01/2020 SUBJECTIVE: Mr. Jones is up in bed. He is pleasantly confused. He wants help carrying his luggage. He is not oriented to place. OBJECTIVE: VITAL SIGNS: He is afebrile, heart rate 80, respirations 18, oxygen saturation 95% on room air, and blood pressure 112/62. CARDIOVASCULAR SYSTEM: S1 and S2 plus. RESPIRATORY SYSTEM: Normal vesicular breath sounds. ABDOMEN: Soft and nontender. Bowel sounds heard in all quadrants. EXTREMITIES: Without cyanosis or clubbing. IMPRESSION: 1. Left intertrochanteric fracture, requiring surgical fixation. Apparently, he had a followup with Orthopedics yesterday and there is minimal displacement, so they have changed his weightbearing to only toe-touch. 2. Postoperative anemia. 3. Chronic obstructive pulmonary disease. 4. Coronary artery disease. 5. Ischemic cardiomyopathy with ejection fraction of 35%. 6. Dyslipidemia. 7. Parkinson disease. 8. Lewy body dementia. PLAN: 1. Continue current medications. 2. Heart healthy diet. 3. Orthopedic precautions. 4. DVT prophylaxis. 5. Decubitus precautions. 6. Stress ulcer prophylaxis. 7. Continue therapy. 8. Routine laboratory values. Job ID: [id number]
[2020-07-01] MEDS: HYDROcodone/Acetaminophen 5/325 mg Tablet PO PRN (16:18)
[2020-07-01] MEDS: Enoxaparin Sodium 40 MG/0.4 ML SYRINGE SC SCH (21:25)
[2020-07-01] MEDS: Donepezil HCl 10 MG TAB PO SCH (21:25)
[2020-07-02] MEDS: Acetaminophen 500 MG TAB PO SCH ×4 (00:28→17:51)
[2020-07-02] MEDS: Mometasone/Formoterol 200/5 60 PUFF INH SCH ×2 (05:24→17:51)
[2020-07-02] MEDS: HYDROcodone/Acetaminophen 5/325 mg Tablet PO PRN (08:07)
[2020-07-02] MEDS: Polyethylene Glycol 3350 17 GM Packet PO SCH (08:08)
[2020-07-02] MEDS: Magnesium Oxide 400 MG TAB PO SCH (08:09)
[2020-07-02] MEDS: Lactinex Tablet PO SCH (08:09)
[2020-07-02] MEDS: Famotidine 20 MG TAB PO SCH ×2 (08:09→21:19)
[2020-07-02] MEDS: Fish Oil 1,000 MG CAP PO SCH (08:09)
[2020-07-02] MEDS: Ferrous Sulfate 325 MG TAB PO SCH ×2 (08:09→17:51)
[2020-07-02] MEDS: Carvedilol 3.125 MG TAB PO SCH ×2 (08:10→21:19)
[2020-07-02] MEDS: Ezetimibe 10 MG TAB PO SCH (08:10)
[2020-07-02] MEDS: Fluticasone Propionate Nasal Spray 16 gm Bottle NASAL SCH (08:10)
[2020-07-02] MEDS: Calcium Carbonate 600 MG + Vit D TAB PO SCH (08:10)
--- NOTE | 2020-07-02 16:41 | PRG ---
DATE OF SERVICE: 07/02/2020 SUBJECTIVE: Mr. Jones is resting in bed. Still has a flat affect. Remains confused. No family at bedside. OBJECTIVE: VITAL SIGNS: He is afebrile, heart rate 80, respirations 16, oxygen saturation 97% on room air, and blood pressure 102/67. CARDIOVASCULAR SYSTEM: S1 and S2 plus. RESPIRATORY SYSTEM: Normal vesicular breath sounds. ABDOMEN: Soft and nontender. Bowel sounds heard in all quadrants. EXTREMITIES: Without cyanosis or clubbing. Left hip incision . CENTRAL NERVOUS SYSTEM: Cognitive deficits present. Generalized weakness. Otherwise, nonfocal. IMPRESSION: 1. Left intertrochanteric fracture, status post surgical fixation. 2. Chronic obstructive pulmonary disease. 3. Coronary artery disease. 4. Ischemic cardiomyopathy. 5. Dyslipidemia. 6. Parkinson disease. 7. Lewy body dementia. PLAN: 1. Continue current medications. 2. Orthopedic precautions. 3. Heart-healthy diet. 4. DVT prophylaxis. 5. Decubitus precautions. 6. Physical therapy. 7. Routine laboratory values. 8. Dr. Macarena cheema [facility]. Job ID: [id number]
[2020-07-02] MEDS: Enoxaparin Sodium 40 MG/0.4 ML SYRINGE SC SCH (21:19)
[2020-07-02] MEDS: Donepezil HCl 10 MG TAB PO SCH (21:19)
[2020-07-03] MEDS: Acetaminophen 500 MG TAB PO SCH ×5 (00:43→22:44)
[2020-07-03] MEDS: HYDROcodone/Acetaminophen 5/325 mg Tablet PO PRN ×3 (03:15→15:18)
[2020-07-03] MEDS: Mometasone/Formoterol 200/5 60 PUFF INH SCH ×2 (05:09→18:45)
[2020-07-03] MEDS: Fluticasone Propionate Nasal Spray 16 gm Bottle NASAL SCH (08:33)
[2020-07-03] MEDS: Polyethylene Glycol 3350 17 GM Packet PO SCH (08:34)
[2020-07-03] MEDS: Ezetimibe 10 MG TAB PO SCH (08:34)
[2020-07-03] MEDS: Fish Oil 1,000 MG CAP PO SCH (08:34)
[2020-07-03] MEDS: Ferrous Sulfate 325 MG TAB PO SCH ×2 (08:35→18:04)
[2020-07-03] MEDS: Famotidine 20 MG TAB PO SCH ×2 (08:35→21:01)
[2020-07-03] MEDS: Lactinex Tablet PO SCH (08:35)
[2020-07-03] MEDS: Carvedilol 3.125 MG TAB PO SCH ×2 (08:37→21:01)
[2020-07-03] MEDS: Magnesium Oxide 400 MG TAB PO SCH (08:37)
[2020-07-03] MEDS: Calcium Carbonate 600 MG + Vit D TAB PO SCH (08:37)
--- NOTE | 2020-07-03 14:11 | PRG ---
DATE OF SERVICE: 07/03/2020 SUBJECTIVE: Mr. Jones is a 69-year-old, thin, unfortunate male who has Parkinson's and Lewy body dementia. Unfortunately, he fell at home and had a resultant left intertrochanteric proximal femur fracture. He was taken to surgical suite by Dr. Lopes and had intramedullary shannon fixation done. Postoperatively, he was anemic and found to have urinary tract infection. He has comorbidities of COPD, coronary artery disease with prior [place], ischemic cardiomyopathy with ejection fraction 35%, class I congestive heart failure, hyperlipidemia, generalized weakness, Parkinson disease, and Lewy body dementia. He was stabilized and transferred to [facility] under the care of Dr. Ornelas for PT and OT. On admission, his cognitive deficits were significant, but they have gradually gotten better here with therapy. The patient did see Dr. Lopes Friday afternoon and was told that he is toe-touch only on that side because the pin is slipped. Physical Therapy has been made aware. has multiple questions about can we do something surgically to fix that. I told her she would have to contact Dr. Lopes's office because he is the orthopedic surgeon taking care of him. OBJECTIVE: VITAL SIGNS: Today reveal blood pressure 128/73, pulse 78 to 82, respirations 18, O2 saturation 96% to 97% on room air, and T-max 97.6. GENERAL: This is a well-developed, well-nourished, thin white male, in no apparent distress at this time. HEENT: Reveals normocephalic and nontraumatic cranium. Pupils equally round and reactive. Extraocular movements intact. Nose and throat are slightly dry. NECK: Supple without masses, nodes, or bruits. CHEST: Clear to auscultation. No rales, rhonchi, wheezes are heard. HEART: Reveals a regular rate and rhythm without murmurs, gallops, or rubs. ABDOMEN: Soft and nontender without organomegaly. Normal bowel sounds are noted. No rebound or guarding is noted. : Deferred. EXTREMITIES: Reveal no clubbing, cyanosis, or edema. Left hip incision looks good. ASSESSMENT: 1. Left intertrochanteric fracture, status post surgical fixation. 2. Chronic obstructive pulmonary disease. 3. Coronary artery disease. 4. Ischemic cardiomyopathy. 5. Hyperlipidemia. 6. Parkinson disease. 7. Lewy body dementia. 8. History of recurrent urinary tract infections. 9. Deep venous thrombosis prophylaxis with Lovenox for 8 weeks per orthopedic surgeon's recommendation. 10. DNR. PLAN: 1. The patient will be toe-touch on that left side secondary to being evaluated at Dr. Lopes's last Friday. 2. The patient's has called Dr. Lopes to explain what the other options are. 3. We have ordered labs for tomorrow. 4. Continue present medications. 5. Continue supportive care. 6. Stress ulcer prophylaxis. 7. DVT prophylaxis. 8. Continue decubitus precautions. 9. Continue physical therapy and occupational therapy. Job ID: [id number]
[2020-07-03] MEDS: Donepezil HCl 10 MG TAB PO SCH (21:01)
[2020-07-03] MEDS: Enoxaparin Sodium 40 MG/0.4 ML SYRINGE SC SCH (21:01)
[2020-07-04] MEDS: Mometasone/Formoterol 200/5 60 PUFF INH SCH ×2 (05:22→17:53)
[2020-07-04] MEDS: Acetaminophen 500 MG TAB PO SCH ×3 (05:32→17:52)
[2020-07-04 05:34] LABS: #Basophils 0.1 thou/uL (0.0-0.2); #Eosinphils 0.2 thou/uL (0.0-0.7); #Lymphocytes 1.3 thou/uL (1.20-3.40); #Monocytes 0.6 thou/uL (0.11-0.59); #Neutrophils 7.8 thou/uL (1.40-6.50); %Basophils 1.4 % (0.0-1.0); %Eosinophils 1.9 % (0.0-10.0); %Lymphocytes 12.6 % (21.0-51.0); %Monocytes 6.5 % (0.0-10.0); %Neutrophils 77.7 % (42.0-75.0); Hemoglobin 11.6 g/dL (14.0-18.0); Mean Corpuscular HGB CONC 30.2 g/dL (32.0-36.0); Mean Corpuscular Hemoglobin 29.9 pg (27.0-31.0); Mean Corpuscular Volume 99.2 fL (78.0-98.0); Mean Platelet Volume 7.5 fL (7.4-10.4); Platelet Count 531 thou/uL (130-400); RBC Distribution Width 15.3 % (11.5-14.5); Red Blood Cell (RBC) Count 3.88 mill/uL (4.70-6.10)
[2020-07-04 05:49] LABS: ALT (SGPT) 13 U/L (8-55); AST (SGOT) 16 U/L (5-34); Albumin 3.6 g/dL (3.4-4.8); Alkaline Phosphatase 172 U/L (40-110); Anion Gap 12 mmol/L (10-20); BUN (Urea Nitrogen) 22 mg/dL (8.4-25.7); Bilirubin, Total 1.4 mg/dL (0.2-1.2); Calc. Creatinine Clearance 80 mL/min (70-130); Calcium 9.3 mg/dL (7.8-10.44); Carbon Dioxide 27 mmol/L (23-31); Chloride 103 mmol/L (98-107); Estimated GFR-MDRD Greater than 90; Globulin 2.6 g/dL (2.4-3.5); Glucose 107 mg/dL (83-110); Potassium 4.1 mmol/L (3.5-5.1); Protein, Total 6.2 g/dL (5.8-8.1); Sodium 138 mmol/L (136-145)
[2020-07-04] MEDS: Magnesium Oxide 400 MG TAB PO SCH (08:17)
[2020-07-04] MEDS: Calcium Carbonate 600 MG + Vit D TAB PO SCH (08:17)
[2020-07-04] MEDS: Ferrous Sulfate 325 MG TAB PO SCH ×2 (08:17→17:52)
[2020-07-04] MEDS: Ezetimibe 10 MG TAB PO SCH (08:17)
[2020-07-04] MEDS: Fish Oil 1,000 MG CAP PO SCH (08:17)
[2020-07-04] MEDS: Lactinex Tablet PO SCH (08:17)
[2020-07-04] MEDS: Polyethylene Glycol 3350 17 GM Packet PO SCH (08:18)
[2020-07-04] MEDS: Fluticasone Propionate Nasal Spray 16 gm Bottle NASAL SCH (08:18)
[2020-07-04] MEDS: HYDROcodone/Acetaminophen 5/325 mg Tablet PO PRN ×2 (08:18→15:19)
[2020-07-04] MEDS: Carvedilol 3.125 MG TAB PO SCH ×2 (08:18→20:36)
[2020-07-04] MEDS: Famotidine 20 MG TAB PO SCH ×2 (08:21→20:37)
--- NOTE | 2020-07-04 10:24 | PRG ---
DATE OF SERVICE: 07/04/2020 SUBJECTIVE: Mr. Jones is a well-developed 69-year-old white male. He has Lewy body dementia along with Parkinson disease. Unfortunately, he fell at home, had a left intertrochanteric proximal femur fracture. Dr. Lopes took him to surgical suite and placed an intramedullary shannon fixation. Postoperatively, he was anemic and found to have urinary tract infection. He does have comorbidities of COPD, coronary artery disease with prior DC, ischemic cardiomyopathy, ejection fraction 35%, class I congestive heart failure, hyperlipidemia, generalized weakness, Parkinson disease, and Lewy body dementia. He was stabilized, transferred to [facility] to Dr. Ornelas's service for PT and OT. He is gradually improving with his cognitive deficits as he is getting his therapy. Dr. Lopes saw him Friday afternoon and told him he is only toe-touch on that left hip. Therapy has been made aware and they are treating him how to transfer. The has multiple questions for Dr. Lopes's office, she will contact him. OBJECTIVE: VITAL SIGNS: Today reveal blood pressure of 108/66, pulse 78 to 80, respirations 18 to 20, O2 saturation 96% to 99% on room air, T-max 97.8. GENERAL: On physical exam, this is a well-developed, well-nourished, soft spoken, white male. He states he is doing well and states his will be here later on. HEENT: Normocephalic and nontraumatic cranium. Pupils equally round and reactive. Extraocular movements are intact. Nose and throat are slightly dry. NECK: Supple without masses, nodes, or bruits. CHEST: Clear to auscultation. No rales, rhonchi, wheezes are heard. HEART: Reveals a regular rate and rhythm without murmurs, gallops, or rubs. ABDOMEN: Soft, nontender without organomegaly. Normal bowel sounds are noted in all 4 quadrants. No rebound or guarding is noted. : Deferred. EXTREMITIES: Reveal no clubbing, cyanosis, or edema. Left hip incision is not able to be seen he has pants on. ASSESSMENT: 1. Left intertrochanteric hip fracture, which is slipped on the pin sticking out, now is toe-touch only. 2. Chronic obstructive pulmonary disease. 3. Coronary artery disease. 4. Ischemic cardiomyopathy. 5. Hyperlipidemia. 6. Parkinson disease. 7. Lewy body dementia. 8. History of recurrent urinary tract infection. 9. Deep venous thrombosis prophylaxis with Lovenox for 8 weeks per Orthopedic Surgery recommendation. 10. DNR. PLAN: 1. The patient will be toe-touch on the left side to be evaluated in Dr. Lopes's office last Friday. 2. The patient's will call Dr. Lopes's office to find out what the other options are. 3. Labs have been ordered for today and actually are back. His anemia is 9.8 and 27.0. His BNP is 221. Creatinine is 0.83, sodium 136, potassium 4.1 . 4. Continue present medications. 5. Continue supportive care. 6. Stress ulcer prophylaxis. 7. DVT prophylaxis. 8. Continue decubitus precautions. 9. Continue PT and OT, but only toe-touch. Job ID: [id number]
[2020-07-04] MEDS: Enoxaparin Sodium 40 MG/0.4 ML SYRINGE SC SCH (20:36)
[2020-07-04] MEDS: Donepezil HCl 10 MG TAB PO SCH (20:36)
[2020-07-05] MEDS: Acetaminophen 500 MG TAB PO SCH ×5 (00:32→23:32)
[2020-07-05] MEDS: Mometasone/Formoterol 200/5 60 PUFF INH SCH ×2 (06:04→17:29)
[2020-07-05] MEDS: Fluticasone Propionate Nasal Spray 16 gm Bottle NASAL SCH (08:27)
[2020-07-05] MEDS: HYDROcodone/Acetaminophen 5/325 mg Tablet PO PRN ×3 (08:28→17:33)
[2020-07-05] MEDS: Magnesium Oxide 400 MG TAB PO SCH (08:29)
[2020-07-05] MEDS: Fish Oil 1,000 MG CAP PO SCH (08:29)
[2020-07-05] MEDS: Ferrous Sulfate 325 MG TAB PO SCH ×2 (08:29→17:29)
[2020-07-05] MEDS: Lactinex Tablet PO SCH (08:29)
[2020-07-05] MEDS: Ezetimibe 10 MG TAB PO SCH (08:29)
[2020-07-05] MEDS: Carvedilol 3.125 MG TAB PO SCH ×2 (08:29→20:30)
[2020-07-05] MEDS: Calcium Carbonate 600 MG + Vit D TAB PO SCH (08:29)
[2020-07-05] MEDS: Famotidine 20 MG TAB PO SCH ×2 (08:30→20:30)
[2020-07-05] MEDS: Polyethylene Glycol 3350 17 GM Packet PO SCH (08:32)
--- NOTE | 2020-07-05 14:39 | PRG ---
DATE OF SERVICE: 07/05/2020 SUBJECTIVE: Mr. Jones is a 69-year-old soft-spoken white male. He unfortunately has Parkinson disease with Lewy body dementia. He fell at home and had left intertrochanteric proximal femur fracture. Dr. Lopes took him to the surgical suite and did an intramedullary shannon fixation. Postoperatively, he was anemic and found to have urinary tract infection. He also has comorbidities of COPD, CAD with [place], ischemic cardiomyopathy, ejection fraction of 35%, class I congestive heart failure, hyperlipidemia, and generalized weakness. He was stabilized, transferred to [facility] under Dr. Ornelas's service. The patient was seen by nurse practitioner and put on toe-touch weightbearing because of the slipped pin in the surgery. They called back yesterday and said it is not as bad as they thought and that he could be weightbearing as tolerated. OBJECTIVE: VITAL SIGNS: Today reveal blood pressure is 118/62, pulse 74 to 80, respirations 16 to 18, O2 saturation 96% to 100% on room air, and T-max 97.2. GENERAL: This is a well-developed, well-nourished, thin white male, in no apparent distress at this time. HEENT: Reveals normocephalic, nontraumatic cranium. Pupils equally round and reactive. Extraocular movements are intact. Nose and throat are slightly dry. NECK: Supple without masses, nodes, or bruits. CHEST: Clear to auscultation. No rales, rhonchi, wheezes are heard. HEART: Reveals a regular rate and rhythm without murmurs, gallops, or rubs. ABDOMEN: Scaphoid, soft, nontender without organomegaly. Normal bowel sounds are noted. No rebound or guarding is noted. : Deferred. EXTREMITIES: Reveal no clubbing, cyanosis, or edema. Left hip incision is covered by the patient's pants. ASSESSMENT: 1. Left intertrochanteric hip fracture, which is slipped on the pin, with the pin slightly sticking out. Now, the patient has been moved back to weightbearing as tolerated. 2. Chronic obstructive pulmonary disease. 3. Coronary artery disease. 4. Ischemic cardiomyopathy. 5. Hyperlipidemia. 6. Parkinson disease. 7. Lewy body dementia. 8. History of recurrent urinary tract infections. 9. Deep venous thrombosis prophylaxis with Lovenox for 8 weeks per Orthopedic Surgery's recommendation. 10. DNR. PLAN: 1. The patient is now weightbearing as tolerated per Dr. Lopes's office. 2. The patient's did call Dr. Lopes's office and got the patient to be placed back on weightbearing as tolerated. 3. Continue present medications. 4. Continue supportive care. 5. Stress ulcer prophylaxis. 6. DVT prophylaxis. 7. Continue decubitus precautions. 8. Continue PT and OT. Job ID: [id number]
[2020-07-05] MEDS: Enoxaparin Sodium 40 MG/0.4 ML SYRINGE SC SCH (20:29)
[2020-07-05] MEDS: Donepezil HCl 10 MG TAB PO SCH (20:29)
[2020-07-05] MEDS: Acetaminophen 325 MG TAB PO PRN (20:30)
[2020-07-06] MEDS: Mometasone/Formoterol 200/5 60 PUFF INH SCH ×2 (06:13→17:10)
[2020-07-06] MEDS: Acetaminophen 500 MG TAB PO SCH ×3 (06:13→17:10)
[2020-07-06] MEDS: Fluticasone Propionate Nasal Spray 16 gm Bottle NASAL SCH (08:21)
[2020-07-06] MEDS: Lactinex Tablet PO SCH (08:21)
[2020-07-06] MEDS: Calcium Carbonate 600 MG + Vit D TAB PO SCH (08:22)
[2020-07-06] MEDS: Ferrous Sulfate 325 MG TAB PO SCH ×2 (08:22→17:10)
[2020-07-06] MEDS: Polyethylene Glycol 3350 17 GM Packet PO SCH (08:22)
[2020-07-06] MEDS: Fish Oil 1,000 MG CAP PO SCH (08:22)
[2020-07-06] MEDS: Magnesium Oxide 400 MG TAB PO SCH (08:22)
[2020-07-06] MEDS: Famotidine 20 MG TAB PO SCH ×2 (08:22→20:53)
[2020-07-06] MEDS: Carvedilol 3.125 MG TAB PO SCH ×2 (08:22→20:53)
[2020-07-06] MEDS: Ezetimibe 10 MG TAB PO SCH (08:22)
[2020-07-06] MEDS: HYDROcodone/Acetaminophen 5/325 mg Tablet PO PRN ×2 (09:15→20:59)
[2020-07-06] MEDS: Donepezil HCl 10 MG TAB PO SCH (20:53)
[2020-07-06] MEDS: Enoxaparin Sodium 40 MG/0.4 ML SYRINGE SC SCH (20:53)
[2020-07-07] MEDS: Acetaminophen 500 MG TAB PO SCH ×4 (00:52→17:53)
[2020-07-07] MEDS: Mometasone/Formoterol 200/5 60 PUFF INH SCH ×2 (05:18→17:54)
[2020-07-07] MEDS: Polyethylene Glycol 3350 17 GM Packet PO SCH (08:03)
[2020-07-07] MEDS: Famotidine 20 MG TAB PO SCH ×2 (08:03→20:21)
[2020-07-07] MEDS: Calcium Carbonate 600 MG + Vit D TAB PO SCH (08:04)
[2020-07-07] MEDS: Lactinex Tablet PO SCH (08:04)
[2020-07-07] MEDS: Fish Oil 1,000 MG CAP PO SCH (08:04)
[2020-07-07] MEDS: Ferrous Sulfate 325 MG TAB PO SCH ×2 (08:04→17:53)
[2020-07-07] MEDS: Ezetimibe 10 MG TAB PO SCH (08:04)
[2020-07-07] MEDS: Carvedilol 3.125 MG TAB PO SCH ×2 (08:05→20:21)
[2020-07-07] MEDS: Fluticasone Propionate Nasal Spray 16 gm Bottle NASAL SCH (08:05)
[2020-07-07] MEDS: Magnesium Oxide 400 MG TAB PO SCH (08:05)
[2020-07-07] MEDS: HYDROcodone/Acetaminophen 5/325 mg Tablet PO PRN (18:20)
[2020-07-07] MEDS: Donepezil HCl 10 MG TAB PO SCH (20:21)
[2020-07-07] MEDS: Enoxaparin Sodium 40 MG/0.4 ML SYRINGE SC SCH (20:21)
[2020-07-08] MEDS: Acetaminophen 500 MG TAB PO SCH ×4 (00:19→17:35)
[2020-07-08] MEDS: Mometasone/Formoterol 200/5 60 PUFF INH SCH ×2 (05:21→17:36)
[2020-07-08] MEDS: HYDROcodone/Acetaminophen 5/325 mg Tablet PO PRN (06:53)
[2020-07-08] MEDS: Magnesium Oxide 400 MG TAB PO SCH (07:53)
[2020-07-08] MEDS: Ferrous Sulfate 325 MG TAB PO SCH ×2 (07:53→17:35)
[2020-07-08] MEDS: Famotidine 20 MG TAB PO SCH ×2 (07:54→21:08)
[2020-07-08] MEDS: Carvedilol 3.125 MG TAB PO SCH ×2 (07:54→21:08)
[2020-07-08] MEDS: Lactinex Tablet PO SCH (07:54)
[2020-07-08] MEDS: Fluticasone Propionate Nasal Spray 16 gm Bottle NASAL SCH (07:55)
[2020-07-08] MEDS: Calcium Carbonate 600 MG + Vit D TAB PO SCH (07:55)
[2020-07-08] MEDS: Ezetimibe 10 MG TAB PO SCH (07:55)
[2020-07-08] MEDS: Fish Oil 1,000 MG CAP PO SCH (07:55)
[2020-07-08] MEDS: Polyethylene Glycol 3350 17 GM Packet PO SCH (07:55)
--- NOTE | 2020-07-08 08:54 | PDOC.BPN ---
- Brief Progress Note Encounter Date: 07/08/20 Encounter Time: 08:48 SUBJECTIVE: Doing well. No concerns from patient or nursing staff. OBJECTIVE: Vital Signs - Most Recent Temp Pulse Resp BP Pulse Ox 98.2 F 79 18 122/71 96 07/08/20 08:00 07/08/20 08:00 07/08/20 08:00 07/08/20 08:00 07/08/20 08:00 No new labs PE: General: well-appearing, NAD CV: RRR, no murmurs Resp: CTAB ABD: soft, nontender. Ext: no cyanosis, or clubbing. L hip incision c/d/i. ASSESSMENT: 1. L hip fracture s/p pinning 2. COPD 3. CAD 4. Ischemic cardiomyopathy 5. Hyperlipidemia 6. Parkinson Disease 7. Lewy Body dementia 9. DVT prophy with Lovenox for 8 weeks per Ortho 10. DNR PLAN: -Patient is non-weightbearing per Dr. Rincon's office, but called office, and got patient to be weightbearing as tolerated. -Continue current rx -Stress ulcer and DVT prophyx -Continue PT/OT
[2020-07-08] MEDS: Donepezil HCl 10 MG TAB PO SCH (21:08)
[2020-07-08] MEDS: Enoxaparin Sodium 40 MG/0.4 ML SYRINGE SC SCH (21:08)
[2020-07-09] MEDS: Acetaminophen 500 MG TAB PO SCH ×4 (00:57→18:18)
[2020-07-09 05:10] LABS: #Basophils 0.1 thou/uL (0.0-0.2); #Eosinphils 0.3 thou/uL (0.0-0.7); #Lymphocytes 1.2 thou/uL (1.20-3.40); #Monocytes 0.7 thou/uL (0.11-0.59); #Neutrophils 7.1 thou/uL (1.40-6.50); %Basophils 0.7 % (0.0-1.0); %Eosinophils 2.9 % (0.0-10.0); %Lymphocytes 12.3 % (21.0-51.0); %Monocytes 7.6 % (0.0-10.0); %Neutrophils 76.5 % (42.0-75.0); Hemoglobin 12.1 g/dL (14.0-18.0); Mean Corpuscular HGB CONC 30.4 g/dL (32.0-36.0); Mean Corpuscular Hemoglobin 30.4 pg (27.0-31.0); Mean Corpuscular Volume 99.9 fL (78.0-98.0); Mean Platelet Volume 7.6 fL (7.4-10.4); Platelet Count 437 thou/uL (130-400); RBC Distribution Width 15.3 % (11.5-14.5); Red Blood Cell (RBC) Count 3.98 mill/uL (4.70-6.10); White Blood Cell (WBC) Count 9.3 thou/uL (4.8-10.8)
[2020-07-09 05:26] LABS: Anion Gap 14 mmol/L (10-20); BUN (Urea Nitrogen) 22 mg/dL (8.4-25.7); Calc. Creatinine Clearance 78 mL/min (70-130); Calcium 9.2 mg/dL (7.8-10.44); Carbon Dioxide 26 mmol/L (23-31); Chloride 104 mmol/L (98-107); Estimated GFR-MDRD Greater than 90; Glucose 105 mg/dL (83-110); Potassium 3.8 mmol/L (3.5-5.1); Sodium 140 mmol/L (136-145)
[2020-07-09] MEDS: Mometasone/Formoterol 200/5 60 PUFF INH SCH ×2 (06:03→18:19)
[2020-07-09] MEDS: Ferrous Sulfate 325 MG TAB PO SCH ×2 (08:13→18:18)
[2020-07-09] MEDS: Famotidine 20 MG TAB PO SCH ×2 (08:13→20:53)
[2020-07-09] MEDS: Carvedilol 3.125 MG TAB PO SCH ×2 (08:13→20:53)
[2020-07-09] MEDS: Lactinex Tablet PO SCH (08:13)
[2020-07-09] MEDS: Ezetimibe 10 MG TAB PO SCH (08:13)
[2020-07-09] MEDS: Magnesium Oxide 400 MG TAB PO SCH (08:14)
[2020-07-09] MEDS: Calcium Carbonate 600 MG + Vit D TAB PO SCH (08:14)
[2020-07-09] MEDS: Fluticasone Propionate Nasal Spray 16 gm Bottle NASAL SCH (08:14)
[2020-07-09] MEDS: Polyethylene Glycol 3350 17 GM Packet PO SCH (08:14)
[2020-07-09] MEDS: HYDROcodone/Acetaminophen 5/325 mg Tablet PO PRN (08:15)
[2020-07-09] MEDS: Fish Oil 1,000 MG CAP PO SCH (08:15)
--- NOTE | 2020-07-09 13:47 | RAD ---
Chest one view HISTORY: Chest pain. FINDINGS: Cardiac silhouette and pulmonary vasculature are unremarkable. Mediastinum is midline with postoperative changes, aortic calcification, and a multi lead left subclavian cardiac electronic device. No lobar consolidation or evidence of pneumothorax. IMPRESSION : No active cardiopulmonary abnormalities are demonstrated. Atherosclerosis.
[2020-07-09] MEDS: Enoxaparin Sodium 40 MG/0.4 ML SYRINGE SC SCH (20:53)
[2020-07-09] MEDS: Donepezil HCl 10 MG TAB PO SCH (20:53)
[2020-07-10] MEDS: Acetaminophen 500 MG TAB PO SCH ×4 (00:32→18:13)
[2020-07-10] MEDS: Mometasone/Formoterol 200/5 60 PUFF INH SCH ×2 (06:01→18:14)
[2020-07-10] MEDS: Calcium Carbonate 600 MG + Vit D TAB PO SCH (08:50)
[2020-07-10] MEDS: Polyethylene Glycol 3350 17 GM Packet PO SCH (08:50)
[2020-07-10] MEDS: Fish Oil 1,000 MG CAP PO SCH (08:50)
[2020-07-10] MEDS: Lactinex Tablet PO SCH (08:51)
[2020-07-10] MEDS: Ferrous Sulfate 325 MG TAB PO SCH ×2 (08:51→18:13)
[2020-07-10] MEDS: Carvedilol 3.125 MG TAB PO SCH ×2 (08:51→20:34)
[2020-07-10] MEDS: Magnesium Oxide 400 MG TAB PO SCH (08:51)
[2020-07-10] MEDS: Ezetimibe 10 MG TAB PO SCH (08:51)
[2020-07-10] MEDS: Fluticasone Propionate Nasal Spray 16 gm Bottle NASAL SCH (08:52)
[2020-07-10] MEDS: Famotidine 20 MG TAB PO SCH ×2 (08:52→20:34)
[2020-07-10] MEDS: HYDROcodone/Acetaminophen 5/325 mg Tablet PO PRN (15:07)
[2020-07-10] MEDS: Enoxaparin Sodium 40 MG/0.4 ML SYRINGE SC SCH (20:34)
[2020-07-10] MEDS: Donepezil HCl 10 MG TAB PO SCH (20:34)
[2020-07-11] MEDS: Acetaminophen 500 MG TAB PO SCH ×4 (01:09→17:13)
[2020-07-11] MEDS: Mometasone/Formoterol 200/5 60 PUFF INH SCH ×2 (06:18→17:13)
[2020-07-11] MEDS: Polyethylene Glycol 3350 17 GM Packet PO SCH (08:21)
[2020-07-11] MEDS: Famotidine 20 MG TAB PO SCH ×2 (08:21→21:25)
[2020-07-11] MEDS: Fluticasone Propionate Nasal Spray 16 gm Bottle NASAL SCH (08:21)
[2020-07-11] MEDS: Ezetimibe 10 MG TAB PO SCH (08:21)
[2020-07-11] MEDS: Lactinex Tablet PO SCH (08:22)
[2020-07-11] MEDS: Calcium Carbonate 600 MG + Vit D TAB PO SCH (08:22)
[2020-07-11] MEDS: Carvedilol 3.125 MG TAB PO SCH ×2 (08:22→21:26)
[2020-07-11] MEDS: Fish Oil 1,000 MG CAP PO SCH (08:22)
[2020-07-11] MEDS: Ferrous Sulfate 325 MG TAB PO SCH ×2 (08:22→17:13)
[2020-07-11] MEDS: Magnesium Oxide 400 MG TAB PO SCH (08:22)
[2020-07-11] MEDS: Enoxaparin Sodium 40 MG/0.4 ML SYRINGE SC SCH (21:23)
[2020-07-11] MEDS: Donepezil HCl 10 MG TAB PO SCH (21:25)
[2020-07-11] MEDS: HYDROcodone/Acetaminophen 5/325 mg Tablet PO PRN (21:30)
[2020-07-12] MEDS: Acetaminophen 500 MG TAB PO SCH ×4 (00:52→17:36)
[2020-07-12] MEDS: Mometasone/Formoterol 200/5 60 PUFF INH SCH ×2 (06:23→17:36)
[2020-07-12] MEDS: Polyethylene Glycol 3350 17 GM Packet PO SCH (08:25)
[2020-07-12] MEDS: HYDROcodone/Acetaminophen 5/325 mg Tablet PO PRN (08:25)
[2020-07-12] MEDS: Ferrous Sulfate 325 MG TAB PO SCH ×2 (08:26→17:36)
[2020-07-12] MEDS: Calcium Carbonate 600 MG + Vit D TAB PO SCH (08:26)
[2020-07-12] MEDS: Lactinex Tablet PO SCH (08:26)
[2020-07-12] MEDS: Famotidine 20 MG TAB PO SCH ×2 (08:26→21:54)
[2020-07-12] MEDS: Fish Oil 1,000 MG CAP PO SCH (08:26)
[2020-07-12] MEDS: Magnesium Oxide 400 MG TAB PO SCH (08:26)
[2020-07-12] MEDS: Ezetimibe 10 MG TAB PO SCH (08:27)
[2020-07-12] MEDS: Fluticasone Propionate Nasal Spray 16 gm Bottle NASAL SCH (08:27)
[2020-07-12] MEDS: Carvedilol 3.125 MG TAB PO SCH ×2 (08:27→21:54)
[2020-07-12] MEDS: Enoxaparin Sodium 40 MG/0.4 ML SYRINGE SC SCH (21:54)
[2020-07-12] MEDS: Donepezil HCl 10 MG TAB PO SCH (21:55)
[2020-07-13] MEDS: Acetaminophen 500 MG TAB PO SCH ×5 (00:05→23:44)
[2020-07-13] MEDS: Mometasone/Formoterol 200/5 60 PUFF INH SCH ×2 (06:01→17:37)
[2020-07-13] MEDS: HYDROcodone/Acetaminophen 5/325 mg Tablet PO PRN (07:59)
[2020-07-13] MEDS: Polyethylene Glycol 3350 17 GM Packet PO SCH (07:59)
[2020-07-13] MEDS: Fish Oil 1,000 MG CAP PO SCH (08:00)
[2020-07-13] MEDS: Magnesium Oxide 400 MG TAB PO SCH (08:00)
[2020-07-13] MEDS: Calcium Carbonate 600 MG + Vit D TAB PO SCH (08:00)
[2020-07-13] MEDS: Ezetimibe 10 MG TAB PO SCH (08:00)
[2020-07-13] MEDS: Ferrous Sulfate 325 MG TAB PO SCH ×2 (08:00→17:37)
[2020-07-13] MEDS: Famotidine 20 MG TAB PO SCH ×2 (08:00→21:16)
[2020-07-13] MEDS: Lactinex Tablet PO SCH (08:00)
[2020-07-13] MEDS: Carvedilol 3.125 MG TAB PO SCH ×2 (08:01→21:16)
[2020-07-13] MEDS: Fluticasone Propionate Nasal Spray 16 gm Bottle NASAL SCH (08:05)
[2020-07-13] MEDS: Donepezil HCl 10 MG TAB PO SCH (21:16)
[2020-07-13] MEDS: Enoxaparin Sodium 40 MG/0.4 ML SYRINGE SC SCH (21:17)
[2020-07-14] MEDS: Acetaminophen 500 MG TAB PO SCH ×4 (05:42→23:52)
[2020-07-14] MEDS: Mometasone/Formoterol 200/5 60 PUFF INH SCH ×2 (05:42→18:15)
[2020-07-14] MEDS: Fluticasone Propionate Nasal Spray 16 gm Bottle NASAL SCH (08:13)
[2020-07-14] MEDS: Calcium Carbonate 600 MG + Vit D TAB PO SCH (08:14)
[2020-07-14] MEDS: Magnesium Oxide 400 MG TAB PO SCH (08:14)
[2020-07-14] MEDS: Carvedilol 3.125 MG TAB PO SCH ×2 (08:14→20:05)
[2020-07-14] MEDS: Ferrous Sulfate 325 MG TAB PO SCH ×2 (08:14→18:15)
[2020-07-14] MEDS: Fish Oil 1,000 MG CAP PO SCH (08:14)
[2020-07-14] MEDS: Ezetimibe 10 MG TAB PO SCH (08:15)
[2020-07-14] MEDS: Polyethylene Glycol 3350 17 GM Packet PO SCH (08:15)
[2020-07-14] MEDS: Lactinex Tablet PO SCH (08:15)
[2020-07-14] MEDS: Famotidine 20 MG TAB PO SCH ×2 (08:15→20:05)
[2020-07-14] MEDS: Donepezil HCl 10 MG TAB PO SCH (20:05)
[2020-07-14] MEDS: Enoxaparin Sodium 40 MG/0.4 ML SYRINGE SC SCH (20:05)
[2020-07-15] MEDS: Acetaminophen 500 MG TAB PO SCH ×4 (05:11→23:52)
[2020-07-15] MEDS: Mometasone/Formoterol 200/5 60 PUFF INH SCH ×2 (05:11→17:37)
[2020-07-15] MEDS: Calcium Carbonate 600 MG + Vit D TAB PO SCH (08:07)
[2020-07-15] MEDS: Famotidine 20 MG TAB PO SCH ×2 (08:08→20:48)
[2020-07-15] MEDS: Carvedilol 3.125 MG TAB PO SCH ×2 (08:08→20:48)
[2020-07-15] MEDS: Magnesium Oxide 400 MG TAB PO SCH (08:08)
[2020-07-15] MEDS: Lactinex Tablet PO SCH (08:08)
[2020-07-15] MEDS: Ferrous Sulfate 325 MG TAB PO SCH ×2 (08:08→17:37)
[2020-07-15] MEDS: Ezetimibe 10 MG TAB PO SCH (08:08)
[2020-07-15] MEDS: Polyethylene Glycol 3350 17 GM Packet PO SCH (08:09)
[2020-07-15] MEDS: Fluticasone Propionate Nasal Spray 16 gm Bottle NASAL SCH (08:14)
[2020-07-15] MEDS: Fish Oil 1,000 MG CAP PO SCH (08:14)
--- NOTE | 2020-07-15 16:44 | PRG ---
DATE OF SERVICE: 07/15/2020 SUBJECTIVE: Mr. Jones is up in his recliner. He denies any questions or concerns, still has a flat affect. No family at bedside. OBJECTIVE: VITAL SIGNS: He is afebrile, heart rate 80, respirations are 20, oxygen saturation 97% on room air, and blood pressure 113/67. CARDIOVASCULAR SYSTEM: S1 and S2 plus. RESPIRATORY SYSTEM: Normal vesicular breath sounds. ABDOMEN: Soft, nontender, and bowel sounds heard in all quadrants. EXTREMITIES: Without cyanosis or clubbing. CENTRAL NERVOUS SYSTEM: Generalized weakness. Otherwise nonfocal. IMPRESSION: 1. intertrochanteric fracture, status post surgical fixation. 2. Chronic obstructive pulmonary disease. 3. Coronary artery disease. 4. Dyslipidemia. 5. Parkinson disease with Lewy body dementia and deconditioning. PLAN: 1. Continue current medications. 2. Heart healthy diet. 3. Orthopedic precautions. 4. DVT prophylaxis with PlexiPulses. 5. Decubitus precautions. 6. Physical therapy. 7. Routine laboratory values. Job ID: [id number]
[2020-07-15] MEDS: Enoxaparin Sodium 40 MG/0.4 ML SYRINGE SC SCH (20:48)
[2020-07-15] MEDS: Donepezil HCl 10 MG TAB PO SCH (20:48)
[2020-07-16] MEDS: Mometasone/Formoterol 200/5 60 PUFF INH SCH ×2 (05:48→17:32)
[2020-07-16] MEDS: Acetaminophen 500 MG TAB PO SCH ×3 (05:48→17:32)
[2020-07-16] MEDS: HYDROcodone/Acetaminophen 5/325 mg Tablet PO PRN (07:59)
[2020-07-16] MEDS: Ferrous Sulfate 325 MG TAB PO SCH ×2 (08:00→17:32)
[2020-07-16] MEDS: Fish Oil 1,000 MG CAP PO SCH (08:00)
[2020-07-16] MEDS: Ezetimibe 10 MG TAB PO SCH (08:00)
[2020-07-16] MEDS: Lactinex Tablet PO SCH (08:00)
[2020-07-16] MEDS: Carvedilol 3.125 MG TAB PO SCH ×2 (08:00→20:39)
[2020-07-16] MEDS: Magnesium Oxide 400 MG TAB PO SCH (08:00)
[2020-07-16] MEDS: Famotidine 20 MG TAB PO SCH ×2 (08:00→20:39)
[2020-07-16] MEDS: Calcium Carbonate 600 MG + Vit D TAB PO SCH (08:00)
[2020-07-16] MEDS: Fluticasone Propionate Nasal Spray 16 gm Bottle NASAL SCH (08:00)
[2020-07-16] MEDS: Polyethylene Glycol 3350 17 GM Packet PO SCH (08:01)
--- NOTE | 2020-07-16 16:08 | PRG ---
DATE OF SERVICE: 07/16/2020 SUBJECTIVE: Mr. Jones is doing the same. Flat affect. Denies any questions or concerns. Discussed with nursing. No family at bedside. OBJECTIVE: VITAL SIGNS: He is afebrile. Heart rate 78, respirations 15, oxygen saturation 95% on room air, blood pressure 122/70. CARDIOVASCULAR SYSTEM: S1, S2 plus. RESPIRATORY SYSTEM: Normal vesicular breath sounds. ABDOMEN: Soft and nontender. Bowel sounds heard in all quadrants. EXTREMITIES: Without cyanosis or clubbing. CENTRAL NERVOUS SYSTEM: Flat affect. Generalized weakness. Mild cognitive deficits. Otherwise nonfocal. IMPRESSION: 1. Surgical fixation of the left hip fracture. 2. Chronic obstructive pulmonary disease. 3. Coronary artery disease. 4. Dyslipidemia. 5. Parkinson disease with Lewy body dementia. 6. Deconditioning. PLAN: 1. Continue current medications. 2. Orthopedic precautions. 3. Heart healthy diet. 4. DVT prophylaxis, he is on Lovenox. 5. Decubitus precautions. 6. Stress ulcer prophylaxis. 7. Routine laboratory values. 8. Dr. Johnson cheema [facility]. Job ID: [id number]
[2020-07-16 20:37] VITALS: BMI 19.8
[2020-07-16] MEDS: Enoxaparin Sodium 40 MG/0.4 ML SYRINGE SC SCH (20:39)
[2020-07-16] MEDS: Donepezil HCl 10 MG TAB PO SCH (20:39)
[2020-07-17] MEDS: Acetaminophen 500 MG TAB PO SCH ×4 (00:11→17:30)
[2020-07-17] MEDS: Mometasone/Formoterol 200/5 60 PUFF INH SCH ×2 (05:15→17:30)
[2020-07-17] MEDS: Polyethylene Glycol 3350 17 GM Packet PO SCH (08:07)
[2020-07-17] MEDS: Fluticasone Propionate Nasal Spray 16 gm Bottle NASAL SCH (08:07)
[2020-07-17] MEDS: Magnesium Oxide 400 MG TAB PO SCH (08:08)
[2020-07-17] MEDS: Ezetimibe 10 MG TAB PO SCH (08:08)
[2020-07-17] MEDS: Ferrous Sulfate 325 MG TAB PO SCH ×2 (08:08→17:30)
[2020-07-17] MEDS: Fish Oil 1,000 MG CAP PO SCH (08:08)
[2020-07-17] MEDS: Carvedilol 3.125 MG TAB PO SCH ×2 (08:08→22:31)
[2020-07-17] MEDS: Lactinex Tablet PO SCH (08:08)
[2020-07-17] MEDS: Calcium Carbonate 600 MG + Vit D TAB PO SCH (08:08)
[2020-07-17] MEDS: Famotidine 20 MG TAB PO SCH ×2 (08:09→22:27)
--- NOTE | 2020-07-17 15:00 | PRG ---
DATE OF SERVICE: 07/14/2020 SUBJECTIVE: The patient lying in the bed, resting after therapy, but did apparently cooperate today. OBJECTIVE: VITAL SIGNS: Show temperature is 98.6, pulse 80, respirations 20, O2 sats 98% on room air, blood pressure 118/67. NEUROLOGICAL: Shows no focal findings. LUNGS: Clear. CARDIAC: Shows regular rhythm. ASSESSMENT: 1. Resolving left total hip incision and open reduction and internal fixation of hip fracture. 2. Stable Lewy body dementia with no delirium, but with persistent confusion. 3. Ischemic cardiomyopathy, asymptomatic. 4. Parkinson disease, stable. 5. Deconditioning, improving slowly. PLAN: 1. Continue PT, OT. 2. Continue stress ulcer and DVT prophylaxis. 3. Continue to monitor nutrition. Job ID: [id number]
--- NOTE | 2020-07-17 15:01 | PRG ---
DATE OF SERVICE: 07/17/2020 SUBJECTIVE: The patient lies in bed rest after therapy, awake and responds to questions minimally. No apparent distress. OBJECTIVE: VITAL SIGNS: Show him to have temperature of 98, pulse 79, respirations 18, O2 saturations 95% on room air . LUNGS: Clear. CARDIAC: Shows regular rhythm. ABDOMEN: Soft and nontender. ASSESSMENT: 1. Resolving left hip open reduction and internal fixation. 2. Stable Lewy body dementia. 3. Decreased blood pressure, possibly dehydration. We will check labs in the a.m. 4. Ischemic cardiomyopathy, asymptomatic. PLAN: 1. Check CBC and comp met in the a.m. 2. Continue PT, OT, and discuss discharge plans with therapy. 3. Continue to monitor for ischemia . Job ID: [id number]
--- NOTE | 2020-07-17 15:01 | PRG ---
DATE OF SERVICE: 07/11/2020 SUBJECTIVE: The patient feels well. No complaints. not in the room. Nurses have no complaints. He is eating well and cooperating somewhat. OBJECTIVE: LUNGS: Clear. CARDIAC: Shows regular rhythm. ABDOMEN: Soft, nontender, left hip incision healing well. ASSESSMENT: 1. Resolving left hip, status post open reduction and internal fixation. 2. Stable chronic obstructive pulmonary disease. 3. Stable coronary artery disease and ischemic cardiomyopathy. 4. Lewy body dementia with more alertness, but persistent confusion. PLAN: 1. Continue PT/OT. 2. Continue stress ulcer and DVT prophylaxis. 3. Continue pain relief as needed with nonsteroidals. 4. Continue to monitor for recurrent angina or congestive heart failure. Job ID: [id number]
--- NOTE | 2020-07-17 15:02 | PRG ---
DATE OF SERVICE: 07/10/2020 SUBJECTIVE: The patient is lying in bed, in no distress. Responds appropriately to questions very minimally. Remains confused. Having no shortness of breath. Has been attempting to cooperate with therapy. OBJECTIVE: VITAL SIGNS: Temperature 97, pulse 80, respirations 20, O2 sats 97% on room air, blood pressure 121/69. LUNGS: Clear. CARDIAC: Regular rhythm. ABDOMEN: Soft and nontender. SKIN/EXTREMITIES: No edema, clubbing, or cyanosis. Left hip incision is clean and dry. LABORATORY DATA: Laboratories yesterday showed a white count of 9300, hematocrit 39, hemoglobin 12. Sodium 140, potassium 3.8, chloride 104, bicarb 26, BUN 22, creatinine 0.81. ASSESSMENT: 1. Resolving pinning of left intertrochanteric fracture. 2. Stable chronic obstructive pulmonary disease. 3. Coronary artery disease with ischemic cardiomyopathy with no chest pain. 4. Lewy body dementia, stable with no agitation, but persistent confusion. 5. Hyperlipidemia, stable. PLAN: 1. Continue PT, OT. 2. Continue stress ulcer and DVT prophylaxis. 3. Continue pain relief as needed. 4. Continue to monitor dietary intake. Job ID: [id number]
--- NOTE | 2020-07-17 15:41 | PRG ---
DATE OF SERVICE: 07/13/2020 SUBJECTIVE: The patient in room, sitting up, eating supper with his who is very pleased with his care. States that she is making plans for his discharge therapist stating that he may be nearing maximum hospital benefit. OBJECTIVE: LUNGS: Clear. CARDIAC: Regular rhythm. ABDOMEN: Soft, nontender. SKIN/EXTREMITIES: Display healing left lateral hip incision. ASSESSMENT: 1. Resolving left hip fracture. 2. Stable chronic obstructive pulmonary disease. 3. Persistent Lewy body dementia with no agitation, but with persistent confusion. 4. Coronary artery disease and ischemic cardiomyopathy, asymptomatic. PLAN: 1. Continue PT and OT. 2. Continue to monitor oral intake. 3. Continue to monitor for signs of ischemia, congestive heart failure. 4. Continue stress ulcer and DVT prophylaxis. Job ID: [id number]
[2020-07-17 18:10] LABS: ALT (SGPT) 15 U/L (8-55); AST (SGOT) 17 U/L (5-34); Albumin 3.4 g/dL (3.4-4.8); Alkaline Phosphatase 135 U/L (40-110); Anion Gap 12 mmol/L (10-20); BUN (Urea Nitrogen) 19 mg/dL (8.4-25.7); Bilirubin, Total 0.8 mg/dL (0.2-1.2); Calc. Creatinine Clearance 66 mL/min (70-130); Calcium 9.1 mg/dL (7.8-10.44); Carbon Dioxide 29 mmol/L (23-31); Chloride 100 mmol/L (98-107); Estimated GFR-MDRD 75; Globulin 2.6 g/dL (2.4-3.5); Glucose 109 mg/dL (83-110); Potassium 4.1 mmol/L (3.5-5.1); Sodium 137 mmol/L (136-145)
[2020-07-17] MEDS: Donepezil HCl 10 MG TAB PO SCH (22:27)
[2020-07-17] MEDS: Enoxaparin Sodium 40 MG/0.4 ML SYRINGE SC SCH (22:27)
[2020-07-18] MEDS: Acetaminophen 500 MG TAB PO SCH ×5 (00:25→23:29)
[2020-07-18 05:11] LABS: #Basophils 0.1 thou/uL (0.0-0.2); #Eosinphils 0.3 thou/uL (0.0-0.7); #Lymphocytes 1.2 thou/uL (1.20-3.40); #Monocytes 0.7 thou/uL (0.11-0.59); #Neutrophils 7.1 thou/uL (1.40-6.50); %Basophils 0.7 % (0.0-1.0); %Eosinophils 2.7 % (0.0-10.0); %Lymphocytes 13.1 % (21.0-51.0); %Monocytes 7.6 % (0.0-10.0); %Neutrophils 75.9 % (42.0-75.0); Hemoglobin 12.1 g/dL (14.0-18.0); Mean Corpuscular HGB CONC 30.6 g/dL (32.0-36.0); Mean Corpuscular Hemoglobin 30.3 pg (27.0-31.0); Mean Platelet Volume 7.7 fL (7.4-10.4); Platelet Count 485 thou/uL (130-400); RBC Distribution Width 14.1 % (11.5-14.5); White Blood Cell (WBC) Count 9.3 thou/uL (4.8-10.8)
[2020-07-18] MEDS: Mometasone/Formoterol 200/5 60 PUFF INH SCH ×2 (05:49→17:37)
[2020-07-18] MEDS: Magnesium Oxide 400 MG TAB PO SCH (08:52)
[2020-07-18] MEDS: Fish Oil 1,000 MG CAP PO SCH (08:52)
[2020-07-18] MEDS: Ezetimibe 10 MG TAB PO SCH (08:52)
[2020-07-18] MEDS: Calcium Carbonate 600 MG + Vit D TAB PO SCH (08:52)
[2020-07-18] MEDS: Ferrous Sulfate 325 MG TAB PO SCH ×2 (08:52→17:37)
[2020-07-18] MEDS: Famotidine 20 MG TAB PO SCH ×2 (08:52→21:00)
[2020-07-18] MEDS: Lactinex Tablet PO SCH (08:52)
[2020-07-18] MEDS: Carvedilol 3.125 MG TAB PO SCH ×2 (08:53→21:00)
[2020-07-18] MEDS: Polyethylene Glycol 3350 17 GM Packet PO SCH ×2 (08:53→10:05)
[2020-07-18] MEDS: Fluticasone Propionate Nasal Spray 16 gm Bottle NASAL SCH (08:53)
[2020-07-18] MEDS: Donepezil HCl 10 MG TAB PO SCH (21:00)
[2020-07-18] MEDS: Enoxaparin Sodium 40 MG/0.4 ML SYRINGE SC SCH (21:00)
[2020-07-19] MEDS: Mometasone/Formoterol 200/5 60 PUFF INH SCH ×2 (05:24→18:09)
[2020-07-19] MEDS: Acetaminophen 500 MG TAB PO SCH ×3 (05:25→18:09)
[2020-07-19] MEDS: Ezetimibe 10 MG TAB PO SCH (08:08)
[2020-07-19] MEDS: Lactinex Tablet PO SCH (08:08)
[2020-07-19] MEDS: Fish Oil 1,000 MG CAP PO SCH (08:09)
[2020-07-19] MEDS: Famotidine 20 MG TAB PO SCH ×2 (08:09→21:10)
[2020-07-19] MEDS: Magnesium Oxide 400 MG TAB PO SCH (08:09)
[2020-07-19] MEDS: Calcium Carbonate 600 MG + Vit D TAB PO SCH (08:10)
[2020-07-19] MEDS: Fluticasone Propionate Nasal Spray 16 gm Bottle NASAL SCH (08:10)
[2020-07-19] MEDS: Polyethylene Glycol 3350 17 GM Packet PO SCH (08:10)
[2020-07-19] MEDS: Carvedilol 3.125 MG TAB PO SCH ×2 (08:10→21:10)
[2020-07-19] MEDS: Ferrous Sulfate 325 MG TAB PO SCH ×2 (08:10→18:09)
[2020-07-19] MEDS: Donepezil HCl 10 MG TAB PO SCH (21:09)
[2020-07-19] MEDS: Enoxaparin Sodium 40 MG/0.4 ML SYRINGE SC SCH (21:09)
[2020-07-20] MEDS: Acetaminophen 500 MG TAB PO SCH ×4 (00:30→17:58)
[2020-07-20] MEDS: Mometasone/Formoterol 200/5 60 PUFF INH SCH ×2 (06:06→17:58)
--- NOTE | 2020-07-20 07:19 | PRG ---
DATE OF SERVICE: 07/18/2020 SUBJECTIVE: The patient is lying in bed, resting after therapy. Family is not in the room. Therapy as stated the patient is stabilizing on his progress and need to consider home health care or palliative care as he is still a two person assist. OBJECTIVE: VITAL SIGNS: Shows temperature is 98, pulse 80, respirations 20, O2 saturations 95% on room air, and blood pressure is 97/54. LUNGS: Clear. CARDIAC: Shows regular rhythm. ABDOMEN: Soft and nontender. EXTREMITIES: Left lateral hip incision healing well. ASSESSMENT: 1. Resolving open reduction and internal fixation of left hip fracture. 2. Stable chronic obstructive pulmonary disease. 3. Persistent significant Lewy body dementia with no agitation, but still poor cooperation. 4. Deconditioning, improving slightly, but still two person assist. 5. Coronary artery disease asymptomatic. PLAN: 1. Continue PT and OT. 2. Continue DVT and stress ulcer prophylaxis. 3. Review labs and Therapy notes. 4. Monitor vital signs with Therapy. 5. Discuss discharge planning with Therapy and . Job ID: [id number]
--- NOTE | 2020-07-20 07:35 | PRG ---
DATE OF SERVICE: 07/20/2020 SUBJECTIVE: The patient is sitting up eating his supper, responds to questions. Still very flat affect, appears to be stronger, but therapy states he is still a 2 person assist. is not in the room. OBJECTIVE: VITAL SIGNS: Shows temperature is 96, pulse 80, respirations 20, O2 sats 97% on room air, blood pressure is 104/71. LABORATORY DATA: Recent laboratory showed comprehensive metabolic profile, CBC stable within normal limits. ASSESSMENT: 1. Stable Lewy body dementia with minimal progress. 2. Resolving left hip open reduction and internal fixation. 3. Deconditioning, improving slowly. 4. Chronic obstructive pulmonary disease, asymptomatic. 5. Coronary artery disease, asymptomatic. PLAN: 1. Discuss personally with PT, OT, and with family. Continue PT and OT. 2. Probably begin to prepare for discharge home. Job ID: [id number]
[2020-07-20] MEDS: Carvedilol 3.125 MG TAB PO SCH ×2 (08:14→21:32)
[2020-07-20] MEDS: Lactinex Tablet PO SCH (08:14)
[2020-07-20] MEDS: Ezetimibe 10 MG TAB PO SCH (08:14)
[2020-07-20] MEDS: Famotidine 20 MG TAB PO SCH ×2 (08:15→21:32)
[2020-07-20] MEDS: Fish Oil 1,000 MG CAP PO SCH (08:15)
[2020-07-20] MEDS: Calcium Carbonate 600 MG + Vit D TAB PO SCH (08:15)
[2020-07-20] MEDS: Magnesium Oxide 400 MG TAB PO SCH (08:15)
[2020-07-20] MEDS: Ferrous Sulfate 325 MG TAB PO SCH ×2 (08:15→17:58)
[2020-07-20] MEDS: Fluticasone Propionate Nasal Spray 16 gm Bottle NASAL SCH (08:16)
[2020-07-20] MEDS: Polyethylene Glycol 3350 17 GM Packet PO SCH (08:17)
[2020-07-20] MEDS: Donepezil HCl 10 MG TAB PO SCH (21:32)
[2020-07-20] MEDS: Enoxaparin Sodium 40 MG/0.4 ML SYRINGE SC SCH (21:33)
[2020-07-21] MEDS: Acetaminophen 500 MG TAB PO SCH ×4 (00:57→17:33)
[2020-07-21] MEDS: Mometasone/Formoterol 200/5 60 PUFF INH SCH ×2 (05:39→17:33)
[2020-07-21] MEDS: Famotidine 20 MG TAB PO SCH ×2 (08:28→21:30)
[2020-07-21] MEDS: Polyethylene Glycol 3350 17 GM Packet PO SCH (08:28)
[2020-07-21] MEDS: Magnesium Oxide 400 MG TAB PO SCH (08:28)
[2020-07-21] MEDS: Ferrous Sulfate 325 MG TAB PO SCH ×2 (08:28→17:33)
[2020-07-21] MEDS: Fish Oil 1,000 MG CAP PO SCH (08:29)
[2020-07-21] MEDS: Carvedilol 3.125 MG TAB PO SCH ×2 (08:29→21:30)
[2020-07-21] MEDS: Ezetimibe 10 MG TAB PO SCH (08:29)
[2020-07-21] MEDS: Fluticasone Propionate Nasal Spray 16 gm Bottle NASAL SCH (08:29)
[2020-07-21] MEDS: Calcium Carbonate 600 MG + Vit D TAB PO SCH (08:29)
[2020-07-21] MEDS: Lactinex Tablet PO SCH (08:31)
[2020-07-21] MEDS: Acetaminophen 325 MG TAB PO PRN (08:41)
--- NOTE | 2020-07-21 14:02 | PRG ---
DATE OF SERVICE: 07/21/2020 SUBJECTIVE: The patient is sitting up in a chair, visiting , has been somewhat confused today, but has been walking in the [place], had a long discussion with and son about discharge planning. confusion about followup as he will be followed by palliative care, [facility]; however, therapy states that he is still walking and improving, and we will probably plan for discharge next week and the family understand this. OBJECTIVE: VITAL SIGNS: Shows temperature is 96, pulse 81, respirations 20, O2 sats 98% on room air, blood pressure is 131/74. LUNGS: Clear. CARDIAC: Shows regular rhythm. ABDOMEN: Soft and nontender. NEUROLOGIC: Shows no focal findings. Left lateral hip incision healed well. ASSESSMENT: 1. Resolved left hip fracture, status post open reduction and internal fixation . 2. Stable Lewy body dementia with some possible slight improvement. 3. Deconditioning, improving greatly. 4. Parkinson disease, stable. 5. Ischemic cardiomyopathy, stable. PLAN: Continue PT, OT. Plan for discharge next week. Discussed in detail with family and they understand. Job ID: [id number]
[2020-07-21] MEDS: Enoxaparin Sodium 40 MG/0.4 ML SYRINGE SC SCH (21:30)
[2020-07-21] MEDS: Donepezil HCl 10 MG TAB PO SCH (21:31)
[2020-07-22] MEDS: Acetaminophen 500 MG TAB PO SCH ×4 (05:51→17:55)
[2020-07-22] MEDS: Mometasone/Formoterol 200/5 60 PUFF INH SCH ×2 (05:51→17:55)
[2020-07-22] MEDS: Fluticasone Propionate Nasal Spray 16 gm Bottle NASAL SCH (09:45)
[2020-07-22] MEDS: Polyethylene Glycol 3350 17 GM Packet PO SCH (09:45)
[2020-07-22] MEDS: Fish Oil 1,000 MG CAP PO SCH (09:45)
[2020-07-22] MEDS: Calcium Carbonate 600 MG + Vit D TAB PO SCH (09:45)
[2020-07-22] MEDS: Ezetimibe 10 MG TAB PO SCH (09:45)
[2020-07-22] MEDS: Ferrous Sulfate 325 MG TAB PO SCH ×2 (09:45→17:55)
[2020-07-22] MEDS: Carvedilol 3.125 MG TAB PO SCH ×2 (09:45→20:58)
[2020-07-22] MEDS: Famotidine 20 MG TAB PO SCH ×2 (09:45→20:58)
[2020-07-22] MEDS: Magnesium Oxide 400 MG TAB PO SCH (09:45)
[2020-07-22] MEDS: Lactinex Tablet PO SCH (09:45)
[2020-07-22] MEDS: Enoxaparin Sodium 40 MG/0.4 ML SYRINGE SC SCH (20:57)
[2020-07-22] MEDS: Donepezil HCl 10 MG TAB PO SCH (20:58)
[2020-07-23] MEDS: Acetaminophen 500 MG TAB PO SCH ×4 (00:09→17:44)
[2020-07-23 05:30] LABS: #Basophils 0.1 thou/uL (0.0-0.2); #Eosinphils 0.2 thou/uL (0.0-0.7); #Lymphocytes 1.2 thou/uL (1.20-3.40); #Monocytes 0.9 thou/uL (0.11-0.59); #Neutrophils 8.7 thou/uL (1.40-6.50); %Eosinophils 1.9 % (0.0-10.0); %Lymphocytes 10.6 % (21.0-51.0); %Monocytes 8.1 % (0.0-10.0); %Neutrophils 78.4 % (42.0-75.0); Hemoglobin 13.1 g/dL (14.0-18.0); Mean Corpuscular HGB CONC 32.1 g/dL (32.0-36.0); Mean Corpuscular Volume 99.6 fL (78.0-98.0); Mean Platelet Volume 6.8 fL (7.4-10.4); Platelet Count 478 thou/uL (130-400); RBC Distribution Width 14.2 % (11.5-14.5); White Blood Cell (WBC) Count 11.1 thou/uL (4.8-10.8)
[2020-07-23 05:40] LABS: Anion Gap 11 mmol/L (10-20); BUN (Urea Nitrogen) 20 mg/dL (8.4-25.7); Calc. Creatinine Clearance 81 mL/min (70-130); Calcium 9.3 mg/dL (7.8-10.44); Carbon Dioxide 29 mmol/L (23-31); Chloride 102 mmol/L (98-107); Estimated GFR-MDRD Greater than 90; Glucose 102 mg/dL (83-110); Sodium 138 mmol/L (136-145)
[2020-07-23] MEDS: Mometasone/Formoterol 200/5 60 PUFF INH SCH ×2 (05:42→17:44)
[2020-07-23] MEDS: Lactinex Tablet PO SCH (08:29)
[2020-07-23] MEDS: Ferrous Sulfate 325 MG TAB PO SCH ×2 (08:29→17:44)
[2020-07-23] MEDS: Carvedilol 3.125 MG TAB PO SCH ×2 (08:30→21:35)
[2020-07-23] MEDS: Polyethylene Glycol 3350 17 GM Packet PO SCH (08:30)
[2020-07-23] MEDS: Magnesium Oxide 400 MG TAB PO SCH (08:30)
[2020-07-23] MEDS: Calcium Carbonate 600 MG + Vit D TAB PO SCH (08:30)
[2020-07-23] MEDS: Ezetimibe 10 MG TAB PO SCH (08:30)
[2020-07-23] MEDS: Fish Oil 1,000 MG CAP PO SCH (08:30)
[2020-07-23] MEDS: Famotidine 20 MG TAB PO SCH ×2 (08:30→21:35)
[2020-07-23] MEDS: Fluticasone Propionate Nasal Spray 16 gm Bottle NASAL SCH (08:30)
[2020-07-23] MEDS: Enoxaparin Sodium 40 MG/0.4 ML SYRINGE SC SCH (21:35)
[2020-07-23] MEDS: Donepezil HCl 10 MG TAB PO SCH (21:35)
[2020-07-24] MEDS: Acetaminophen 500 MG TAB PO SCH ×4 (01:00→17:34)
[2020-07-24] MEDS: Mometasone/Formoterol 200/5 60 PUFF INH SCH ×2 (05:51→17:39)
[2020-07-24] MEDS: Ferrous Sulfate 325 MG TAB PO SCH ×2 (08:28→17:34)
[2020-07-24] MEDS: Lactinex Tablet PO SCH (08:28)
[2020-07-24] MEDS: Ezetimibe 10 MG TAB PO SCH (08:28)
[2020-07-24] MEDS: Carvedilol 3.125 MG TAB PO SCH ×2 (08:29→20:42)
[2020-07-24] MEDS: Calcium Carbonate 600 MG + Vit D TAB PO SCH (08:29)
[2020-07-24] MEDS: Polyethylene Glycol 3350 17 GM Packet PO SCH (08:29)
[2020-07-24] MEDS: Magnesium Oxide 400 MG TAB PO SCH (08:29)
[2020-07-24] MEDS: Famotidine 20 MG TAB PO SCH ×2 (08:29→20:42)
[2020-07-24] MEDS: Fish Oil 1,000 MG CAP PO SCH (08:29)
[2020-07-24] MEDS: Fluticasone Propionate Nasal Spray 16 gm Bottle NASAL SCH (08:30)
--- NOTE | 2020-07-24 17:40 | PRG ---
DATE OF SERVICE: 07/24/2020 SUBJECTIVE: The patient is cooperating with therapy and walking somewhat, but is exhausted and resting at this time in bed. He is responding appropriately to questions, although slowly. He is having no problems with swallowing or eating. OBJECTIVE: VITAL SIGNS: Temperature is 96.4, pulse 72, respirations 18, O2 sats 96% on room air, blood pressure 133/63. LUNGS: Clear. left lateral hip incision healing well. ASSESSMENT: 1. Resolving left hip fracture, status post open reduction and internal fixation. 2. Stable Parkinson disease. 3. Slowly progressive Lewy body dementia. 4. Deconditioning, improving greatly. PLAN: 1. Continue . 2. Await to follow up with neurologist. 3. Continue to monitor oral intake. 4. Prepare for discharge. Job ID: [id number]
[2020-07-24] MEDS: Enoxaparin Sodium 40 MG/0.4 ML SYRINGE SC SCH (20:42)
[2020-07-24] MEDS: Donepezil HCl 10 MG TAB PO SCH (20:42)
[2020-07-25] MEDS: Acetaminophen 500 MG TAB PO SCH ×4 (00:41→17:08)
[2020-07-25] MEDS: Mometasone/Formoterol 200/5 60 PUFF INH SCH ×2 (06:06→17:09)
[2020-07-25] MEDS: Fish Oil 1,000 MG CAP PO SCH (08:09)
[2020-07-25] MEDS: Lactinex Tablet PO SCH (08:09)
[2020-07-25] MEDS: Ferrous Sulfate 325 MG TAB PO SCH ×2 (08:10→17:09)
[2020-07-25] MEDS: Calcium Carbonate 600 MG + Vit D TAB PO SCH (08:10)
[2020-07-25] MEDS: Magnesium Oxide 400 MG TAB PO SCH (08:11)
[2020-07-25] MEDS: Ezetimibe 10 MG TAB PO SCH (08:11)
[2020-07-25] MEDS: Polyethylene Glycol 3350 17 GM Packet PO SCH (08:11)
[2020-07-25] MEDS: Famotidine 20 MG TAB PO SCH ×2 (08:11→20:34)
[2020-07-25] MEDS: Carvedilol 3.125 MG TAB PO SCH ×2 (08:11→20:34)
[2020-07-25] MEDS: Fluticasone Propionate Nasal Spray 16 gm Bottle NASAL SCH (08:12)
--- NOTE | 2020-07-25 17:25 | CT ---
CT head noncontrast HISTORY: Fall. Injury. COMPARISON: 01/18/2017. FINDINGS: There is no evidence of acute intracranial hemorrhage or infarct. The ventricles appear nor mal in size, shape and position. Mild diffuse cortical atrophy and chronic ischemic small vessel disease are stable. Hyperdense polyp partially visualized within the left maxillary sinus. Prominent rotation of the patient and lack of correction on the reformatted images compromises exam. IMPRESSION : Chronic-type findings are stable. No acute intracranial abnormalities are demonstrated.
[2020-07-25] MEDS: Donepezil HCl 10 MG TAB PO SCH (20:34)
[2020-07-25] MEDS: Enoxaparin Sodium 40 MG/0.4 ML SYRINGE SC SCH (20:34)
[2020-07-26] MEDS: Acetaminophen 500 MG TAB PO SCH ×4 (00:58→17:58)
[2020-07-26] MEDS: Mometasone/Formoterol 200/5 60 PUFF INH SCH ×2 (05:51→17:59)
--- NOTE | 2020-07-26 06:53 | PRG ---
DATE OF SERVICE: 07/25/2020 SUBJECTIVE: The patient is lying in bed, visiting his grandson, appears to be stable despite recent fall with no evident trauma to his head. OBJECTIVE: HEAD: Shows CT scan of the brain, normal limits. NEUROLOGIC: Shows persistent flat affect with some bradykinesia. Strength appears to be slightly improved as patient is cooperating with therapy but is planning on discharging home in the next several days and we will discuss hospice with family and they will make decision tonight after discussion with hospice. ASSESSMENT: 1. Lewy body dementia, stable with minimal progression recently. 2. Left hip fracture, resolving pain. 3. Chronic obstructive pulmonary disease, asymptomatic. 4. Coronary artery disease, asymptomatic. PLAN: 1. Discussed discharge planning with family and hospice. 2. Continue PT/OT. 3. Continue to monitor for falls. 4. Continue stress ulcer prophylaxis and DVT prophylaxis, but may discontinue Lovenox because of fall. Job ID: [id number]
[2020-07-26] MEDS: Fluticasone Propionate Nasal Spray 16 gm Bottle NASAL SCH (09:21)
[2020-07-26] MEDS: Polyethylene Glycol 3350 17 GM Packet PO SCH (09:21)
[2020-07-26] MEDS: Lactinex Tablet PO SCH (09:22)
[2020-07-26] MEDS: Ezetimibe 10 MG TAB PO SCH (09:23)
[2020-07-26] MEDS: Acetaminophen 325 MG TAB PO PRN ×2 (09:23→21:24)
[2020-07-26] MEDS: Famotidine 20 MG TAB PO SCH ×2 (09:24→21:24)
[2020-07-26] MEDS: Calcium Carbonate 600 MG + Vit D TAB PO SCH (09:24)
[2020-07-26] MEDS: Fish Oil 1,000 MG CAP PO SCH (09:24)
[2020-07-26] MEDS: Magnesium Oxide 400 MG TAB PO SCH (09:24)
[2020-07-26] MEDS: Carvedilol 3.125 MG TAB PO SCH ×2 (09:24→21:24)
[2020-07-26] MEDS: Ferrous Sulfate 325 MG TAB PO SCH ×2 (09:24→17:58)
--- NOTE | 2020-07-26 10:12 | RAD ---
EXAM: 2 views of the left hip HISTORY: Left femur fracture repair and left hip pain COMPARISON: None FINDINGS: 2 views of the left hip shows the patient is status post ORIF of an intertrochanteric left femur fracture. No perihardware lucency is seen. No degenerative changes are seen. No soft tissue swelling is present. IMPRESSION: Status post ORIF of femur fracture without evidence of complication.
[2020-07-26] MEDS: Donepezil HCl 10 MG TAB PO SCH (21:24)
[2020-07-27] MEDS: Acetaminophen 500 MG TAB PO SCH ×4 (01:38→18:19)
[2020-07-27] MEDS: Mometasone/Formoterol 200/5 60 PUFF INH SCH ×2 (06:10→18:20)
[2020-07-27] MEDS: Ezetimibe 10 MG TAB PO SCH (08:49)
[2020-07-27] MEDS: Fluticasone Propionate Nasal Spray 16 gm Bottle NASAL SCH (08:49)
[2020-07-27] MEDS: Polyethylene Glycol 3350 17 GM Packet PO SCH (08:49)
[2020-07-27] MEDS: Carvedilol 3.125 MG TAB PO SCH ×2 (08:49→21:40)
[2020-07-27] MEDS: Ferrous Sulfate 325 MG TAB PO SCH ×2 (08:49→18:19)
[2020-07-27] MEDS: Magnesium Oxide 400 MG TAB PO SCH (08:49)
[2020-07-27] MEDS: Calcium Carbonate 600 MG + Vit D TAB PO SCH (08:49)
[2020-07-27] MEDS: Fish Oil 1,000 MG CAP PO SCH (08:49)
[2020-07-27] MEDS: Famotidine 20 MG TAB PO SCH ×2 (08:49→21:40)
[2020-07-27] MEDS: Lactinex Tablet PO SCH (08:50)
[2020-07-27] MEDS: Acetaminophen 325 MG TAB PO PRN (09:04)
--- NOTE | 2020-07-27 16:53 | PRG ---
DATE OF SERVICE: 07/26/2020 SUBJECTIVE: The patient lying in bed exhausted after doing therapy today. He, however, is having no sequelae from his fall yesterday with negative CT of his brain and negative x-ray of his hip. The is somewhat upset about his followup, but understands. She has multiple questions about hospice, palliative care and home health and ultimately has decided to go home on [facility] and is requesting a hospital bed, which I feel he requires because of his significant Parkinson disease and need to move him into different positions and also because of the need to change the height of the bed in order to . He also needs a walker to help him ambulate as he is only walking with a walker. She is also requesting a bedside alarm when she is out of the room. OBJECTIVE: VITAL SIGNS: With temperature 98.8, pulse 83, respirations 20, O2 sats 98% on room air, and blood pressure 140/77. LUNGS: Clear. CARDIAC: Shows regular rhythm. No gallops or murmurs. EXTREMITIES: Show left lateral hip incision healing well. NEUROLOGICAL: Shows significant bradykinesia, masked facies with minimal tremor. Neurologic shows the patient is slow in his responses and becomes fatigued and somnolent very easily. ASSESSMENT: 1. Resolving left hip fracture, status post open reduction and internal fixation. 2. Stable chronic obstructive pulmonary disease with no exacerbation. 3. Slowly progressive Parkinson disease and bradykinesia and mild tremor with just some difficulty ambulating and transferring, requiring hospital bed and walker. 4. Lewy body dementia, which is slowly progressing, but the patient is still cooperating. 5. Coronary artery disease, status post myocardial infarction and defibrillator many years ago. No evidence for recurrent pain. PLAN: Plan for discharge home on July 28 with hospital bed, walker with [facility] to be followed by PCP [facility]. Job ID: [id number]
[2020-07-27] MEDS: Donepezil HCl 10 MG TAB PO SCH (21:40)
[2020-07-28] MEDS: Acetaminophen 500 MG TAB PO SCH ×3 (00:57→11:28)
[2020-07-28] MEDS: Mometasone/Formoterol 200/5 60 PUFF INH SCH (05:16)
[2020-07-28 07:29] VITALS: BP 114/71; TEMP 98.2
[2020-07-28] MEDS: Fluticasone Propionate Nasal Spray 16 gm Bottle NASAL SCH (09:54)
[2020-07-28] MEDS: Polyethylene Glycol 3350 17 GM Packet PO SCH (09:54)
[2020-07-28] MEDS: Ferrous Sulfate 325 MG TAB PO SCH (09:54)
[2020-07-28] MEDS: Fish Oil 1,000 MG CAP PO SCH (09:55)
[2020-07-28] MEDS: Carvedilol 3.125 MG TAB PO SCH (09:55)
[2020-07-28] MEDS: Famotidine 20 MG TAB PO SCH (09:55)
[2020-07-28] MEDS: Magnesium Oxide 400 MG TAB PO SCH (09:55)
[2020-07-28] MEDS: Calcium Carbonate 600 MG + Vit D TAB PO SCH (09:55)
[2020-07-28] MEDS: Ezetimibe 10 MG TAB PO SCH (09:55)
[2020-07-28] MEDS: Lactinex Tablet PO SCH (09:56)
== END 2020-07-28 18:06 | disposition home health service (06) | DRG 57 ==
LOC: NAV ACUTE 15:49
PROVIDERS: ADMIT Internal Medicine; ATTEND Internal Medicine
DX: G20 Parkinson's disease (principal); N39.0 Urinary tract infection, site not specified; D62 Acute posthemorrhagic anemia; G31.83 Neurocognitive disorder with Lewy bodies; S72.142D Displaced intertrochanteric fracture of left femur, subsequent encounter for closed fracture with routine healing; F02.80 Dementia in other diseases classified elsewhere, unspecified severity, without behavioral disturbance, psychotic disturbance, mood disturbance, and anxiety; I25.5 Ischemic cardiomyopathy; B96.20 Unspecified Escherichia coli [E. coli] as the cause of diseases classified elsewhere; I11.0 Hypertensive heart disease with heart failure; I50.9 Heart failure, unspecified; J44.9 Chronic obstructive pulmonary disease, unspecified; Z66 Do not resuscitate; I25.10 Atherosclerotic heart disease of native coronary artery without angina pectoris; E78.5 Hyperlipidemia, unspecified; R53.81 Other malaise; I25.2 Old myocardial infarction; Z95.810 Presence of automatic (implantable) cardiac defibrillator
CPT/HCPCS: 36415; 70450; 71045; 80048; 80053; 85025; 94664; J1650